=== PATIENT | female | born 1945 | race Caucasian/White ===

== ENCOUNTER 2019-11-27 22:00 | Emergency (ER) | payer MEDICARE ==
[2019-11-27 22:16] VITALS: RESP 20; TEMP 97.8
[2019-11-27] MEDS ORDERED: MORPHINE SULFATE 4 MG/ML SYRINGE IM STA (22:37)
--- NOTE | 2019-11-27 22:57 | ED ---
General Adult HPI - General Chief complaint: Fall Stated complaint: Fall Time Seen by Provider: 11/27/19 22:04 Source: patient, EMS, RN notes reviewed Mode of arrival: EMS Limitations: no limitations - History of Present Illness Initial comments: 74-year-old female with a past medical history of hyperlipidemia, hypertension, rheumatoid arthritis, thyroid disorder presents to the emergency department for chief complaint of fall. Patient states she was getting out of her shower when she stepped over the edge of the bathtub and onto a stair. States she missed the stair and fell onto her left side. Patient did not hit her head but does have some neck pain. Patient is complaining of left foot and hip pain. Denies any back chest or abdominal pain. Denies any lightheadedness chest pain or shortness of breath preceding this fall. Fall was purely mechanical. Patient denies being on blood thinners.Patient has no other complaints at this time i ncluding shortness of breath, chest pain, abdominal pain, nausea or vomiting, headache, or visual changes. - Related Data Allergies Allergy/AdvReac Type Severity Reaction Status Date / Time Penicillins Allergy Rash/Hives Verified 11/27/19 22:07 azithromycin AdvReac Abdominal Verified 11/27/19 22:07 Pain Review of Systems ROS Statement: Those systems with pertinent positive or pertinent negative responses have been documented in the HPI. ROS Other: All systems not noted in ROS Statement are negative. Past Medical History Past Medical History: Hyperlipidemia, Hypertension, Rheumatoid Arthritis (RA), Thyroid Disorder History of Any Multi-Drug Resistant Organisms: None Reported Past Surgical History: Breast Surgery, Orthopedic Surgery, Tonsillectomy Additional Past Surgical History / Comment(s): foot surgeries, tongue biopsy, breast biopsies Past Psychological History: Bipolar Smoking Status: Former smoker Past Alcohol Use History: Rare Past Drug Use History: None Reported General Exam Limitations: no limitations General appearance: alert, in no apparent distress Head exam: Present: atraumatic, normocephalic, normal inspection Eye exam: Present: normal appearance, PERRL, EOMI. Absent: scleral icterus, conjunctival injection, periorbital swelling ENT exam: Present: normal exam, normal oropharynx, mucous membranes moist, TM's normal bilaterally, normal external ear exam Neck exam: Present: tenderness (Mild tenderness of cervical spine.), other (c- collar in place). Absent: meningismus, lymphadenopathy Respiratory exam: Present: normal lung sounds bilaterally. Absent: respiratory distress, wheezes, rales, rhonchi, stridor Cardiovascular Exam: Present: regular rate, normal rhythm, normal heart sounds. Absent: systolic murmur, diastolic murmur, rubs, gallop, clicks GI/Abdominal exam: Present: soft, normal bowel sounds. Absent: distended, tenderness, guarding, rebound, rigid Extremities exam: Present: normal capillary refill (Capillary fill less than 2 seconds in the left lower extremity. DP pulses 2+.), other (Patient has generalized tenderness of the left foot tib-fib and proximal femur. Patient able to flex the left hip 30. Extension to neutral position.). Absent: calf tenderness Back exam: Absent: CVA tenderness (R), CVA tenderness (L) Neurological exam: Present: alert, oriented X3 Psychiatric exam: Present: normal affect, normal mood Course Vital Signs 11/27/19 11/27/19 22:08 23:09 Temperature 97.8 F Pulse Rate 89 80 Respiratory 20 20 Rate Blood Pressure 125/63 131/69 O2 Sat by Pulse 97 98 Oximetry Medical Decision Making - Medical Decision Making 74-year-old female presents for mechanical fall. Patient thinks complaint is left foot pain but if any pain throughout the entire left leg. Neurovascular status intact in the left lower extremity CT cervical spine shows multilevel spondylitic changes without fracture. There is cerebral atrophy and chronic small vessel ischemia. 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 There is no mass effect, midline shift or sign of intracranial hemorrhage. X-ray of the left hip and pelvis shows no fracture. X-ray of the left tib-fib shows no acute abnormality x-ray of the left foot shows advanced obstructive changes that could relate to long-standing rheumatoid arthritis. No fracture seen. Patient does have a history of arthritis and left foot. Upon reevaluation patient is able to flex hip fully as well as left knee. She is able to sit without any pain and strings her legs around the side of the bed without any pain. However she is unable to bear weight on the left foot. States all of the pain is in the left foot. Therefore patient was splinted in a posterior splint and will follow up with orthopedics. Patient's son is coming to pick them up and will help them get into the house. She does have a walker and cane at home. They will return if patient has any worsening symptoms.I discussed this case with attending Dr. Shelton who agrees with this assessment and treatment plan. Disposition Clinical Impression: Fall, Left foot pain Disposition: HOME SELF-CARE Condition: Good Instructions (If sedation given, give patient instructions): Arthralgia (ED) Additional Instructions: Please take Tylenol for pain. Keep splint dry. Follow-up with orthopedics in one to 2 days. Return if you have any worsening symptoms to the emergency department. Is patient prescribed a controlled substance at d/c from ED?: No Referrals: Vu Rhoades DO [Primary Care Provider] - 1-2 days Db Pritchard DO [Doctor of Osteopathic Medicine] - 1-2 days Time of Disposition: 23:51
--- NOTE | 2019-11-27 23:08 | CT ---
EXAMINATION TYPE: CT brain ana alexander con DATE OF EXAM: 11/27/2019 COMPARISON: None HISTORY: Fall. Headache. Neck pain. CT DLP: mGycm Automated exposure control for dose reduction was used. There is cerebral cortical atrophy. 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 There is old right posterior frontal lobe craniotomy defect. There is no mass eff ect nor midline shift. There is no sign of intracranial hemorrhage. Skull base is intact. Cervical vertebra have fairly normal alignment to there is moderate narrowing of disc spaces from C3 to C7 with spurring of the endplates. There is mild hypertrophic multilevel cervical facet arthropath y. Cervical basilar relationships is normal. The posterior elements are intact. IMPRESSION: Cervical multilevel spondylotic changes. No fracture. Cerebral atrophy and chronic small vessel ischemia. 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
--- NOTE | 2019-11-27 23:10 | XR ---
EXAMINATION TYPE: XR Hip LT and AP Pelvis DATE OF EXAM: 11/27/2019 COMPARISON: NONE HISTORY: Hip pain TECHNIQUE: 3 views FINDINGS: Pelvic ring is intact. There is sclerosis at the pubic symphysis. There is some spurring of the acetabula. Sacroiliac joints appear normal. There is no evidence of a fracture. There is 2 cm exostosis on the left iliac bone. IMPRESSION: No acute abnormality of the pelvis and left hip. No fracture.
[2019-11-27 23:11] VITALS: BP 131/69; PULSE 80
--- NOTE | 2019-11-27 23:11 | XR ---
EXAMINATION TYPE: XR foot complete LT DATE OF EXAM: 11/27/2019 COMPARISON: NONE HISTORY: Pain after falling TECHNIQUE: 3 views FINDINGS: There is extensive erosion at the MP joints with destructive changes. There is old fusion s urgery at the first MP joint. There is osteopenia. There is plantar calcaneal spurring. There is narr owing of the intertarsal joint spaces. IMPRESSION: Advanced destructive changes at the MP joints could relate to long-standing rheumatoid ar thritis or other inflammatory arthritis. No acute fracture seen.
--- NOTE | 2019-11-27 23:13 | XR ---
EXAMINATION TYPE: XR tibia fibula LT DATE OF EXAM: 11/27/2019 COMPARISON: NONE HISTORY: Leg pain TECHNIQUE: 4 views FINDINGS: I see no fracture nor dislocation. Knee joint and ankle joint appear intact. Tibia and fibu la appear intact. There is some spurring of the patella. IMPRESSION: No acute abnormality of the left tibia and fibula.
--- NOTE | 2019-11-27 23:29 | ED ---
General Adult HPI - General Chief complaint: Fall Stated complaint: Fall Time Seen by Provider: 11/27/19 22:04 Source: patient, EMS Mode of arrival: EMS Limitations: no limitations - Related Data Allergies Allergy/AdvReac Type Severity Reaction Status Date / Time Penicillins Allergy Rash/Hives Verified 11/27/19 22:07 azithromycin AdvReac Abdominal Verified 11/27/19 22:07 Pain Review of Systems ROS Statement: Those systems with pertinent positive or pertinent negative responses have been documented in the HPI. ROS Other: All systems not noted in ROS Statement are negative. Past Medical History Past Medical History: Hyperlipidemia, Hypertension, Rheumatoid Arthritis (RA), Thyroid Disorder History of Any Multi-Drug Resistant Organisms: None Reported Past Surgical History: Breast Surgery, Orthopedic Surgery, Tonsillectomy Additional Past Surgical History / Comment(s): foot surgeries, tongue biopsy, breast biopsies Past Psychological History: Bipolar Smoking Status: Former smoker Past Alcohol Use History: Rare Past Drug Use History: None Reported General Exam Limitations: no limitations Course Vital Signs 11/27/19 22:08 Temperature 97.8 F Pulse Rate 89 Respiratory 20 Rate Blood Pressure 125/63 O2 Sat by Pulse 97 Oximetry Disposition Referrals: Vu Rhoades DO [Primary Care Provider] - 1-2 days
== END 2019-11-28 00:30 | disposition home or self-care (01) ==
LOC: EC 22:00
DX: M79.672 Pain in left foot (principal); M47.812 Spondylosis without myelopathy or radiculopathy, cervical region; G31.9 Degenerative disease of nervous system, unspecified; I67.82 Cerebral ischemia; R93.7 Abnormal findings on diagnostic imaging of other parts of musculoskeletal system; M19.072 Primary osteoarthritis, left ankle and foot; M54.2 Cervicalgia; M25.552 Pain in left hip; M06.9 Rheumatoid arthritis, unspecified; Z87.891 Personal history of nicotine dependence; Z88.0 Allergy status to penicillin; Z88.1 Allergy status to other antibiotic agents; Z86.69 Personal history of other diseases of the nervous system and sense organs; Z98.890 Other specified postprocedural states; W01.0XXA Fall on same level from slipping, tripping and stumbling without subsequent striking against object, initial encounter; Y93.89 Activity, other specified; Y92.009 Unspecified place in unspecified non-institutional (private) residence as the place of occurrence of the external cause
CPT/HCPCS: 93005; 73502; 73590; 73630; 72125; 70450; 99284; 29515; 96372; J2270

== ENCOUNTER 2021-01-31 17:07 | Observation (INO) | payer MEDICARE ==
[2021-01-31] MEDS ORDERED: SODIUM CHLORIDE 0.9% 500 ML 500 ML IV STA (17:19)
[2021-01-31 17:42] LABS: Basophils % (A) 0 %; Eosinophils % (A) 0 %; HCT 37.7 % (34.0-46.0); HGB 12.4 gm/dL (11.4-16.0); Lymphocytes # (A) 0.5 k/uL (1.0-4.8); Lymphocytes % (A) 6 %; MCH 33.7 pg (25.0-35.0); MCHC 32.8 g/dL (31.0-37.0); Macrocytosis Slight; Mean Platelet Volume 7.9; Monocytes # (A) 0.4 k/uL (0-1.0); Monocytes % (A) 5 %; Neutrophils # (A) 7.2 k/uL (1.3-7.7); Neutrophils % (A) 88 %; Platelet Count 152 k/uL (150-450); RBC 3.66 m/uL (3.80-5.40); RDW 15.7 % (11.5-15.5); WBC 8.2 k/uL (3.8-10.6)
[2021-01-31 17:51] LABS: Partial Thromboplastin Time 24.6 sec (22.0-30.0); Prothrombin Time 10.3 sec (9.0-12.0)
[2021-01-31 17:56] LABS: Albumin 3.6 g/dL (3.5-5.0); Calcium 9.5 mg/dL (8.4-10.2); Magnesium 1.8 mg/dL (1.6-2.3); Potassium 4.2 mmol/L (3.5-5.1); Total Bilirubin 0.5 mg/dL (0.2-1.3)
[2021-01-31 18:04] LABS: Appearance,Urine Clear (Clear); Bilirubin,Urine Negative (Negative); Blood,Urine Negative (Negative); Color,Urine Yellow; Glucose,Urine (UA) Negative (Negative); Ketones,Urine Negative (Negative); Leukocyte Esterase,Urine Large (Negative); Mucus,Urine Rare /hpf; Nitrite,Urine Negative (Negative); PH, Urine 7.5 (5.0-8.0); Protein,Urine Trace (Negative); RBC,Urine 1 /hpf (0-5); Specific Gravity,Urine 1.008 (1.001-1.035); Squamous Epithelial Cell,Urine 1 /hpf (0-4); Urobilinogen,Urine <2.0 mg/dL (<2.0); WBC,Urine 27 /hpf (0-5)
--- NOTE | 2021-01-31 18:11 | XR ---
EXAMINATION TYPE: XR chest 2V DATE OF EXAM: 01/31/2021 COMPARISON: NONE HISTORY: Weakness. TECHNIQUE: Frontal and lateral views of the chest are obtained. FINDINGS: There is mild prominence of interstitial and vascular markings. No significant infiltrate, pleural effusion, or pneumothorax seen. Mild cardiomegaly. The osseous structures are intact. IMPRESSION: Mild interstitial edema versus atelectasis.
[2021-01-31] MEDS ORDERED: ACETAMINOPHEN TAB 500 MG TAB PO STA (18:12)
--- NOTE | 2021-01-31 18:25 | ED ---
Weakness HPI - General Chief complaint: Weakness Stated complaint: Weakness Time Seen by Provider: 01/31/21 17:12 Source: patient, EMS Mode of arrival: EMS Limitations: no limitations - History of Present Illness Initial comments: Patient is a 75-year-old female, with history of rheumatoid arthritis, hypertension, presenting to the emergency department via EMS from home for generalized weakness. Patient states she's been feeling weaker over the last day. She states she can normally walk with a walker but had a hard time getting around today. She denies any falls or trauma. She denies having any pain anywhere. She states her doctor started her on steroids over the last few days due to increased weakness of her lower legs. She denies any fevers or chills, no chest pain or shortness of breath, no abdominal pain, no nausea or vomiting. She denies any dysuria. She denies any sick contacts. She has no further complaints at this time. Upon arrival to the ER, she is slightly febrile 100.7, rest of vitals normal. - Related Data Home Medications Medication Instructions Recorded Confirmed Acetaminophen Tab [Tylenol Tab] 500 mg PO BID 01/31/21 01/31/21 Calcium Carb-Vit D 500Mg-5Mcg 1 tab PO BID 01/31/21 01/31/21 [Oscal 500+D 5 Mcg (200 Iu)] Cholecalciferol [Vitamin D3 (25 25 mcg PO DAILY 01/31/21 01/31/21 Mcg = 1000 Iu)] Divalproex [Depakote] 250 mg PO HS 01/31/21 01/31/21 Folic Acid 6 mg PO DAILY@1200 01/31/21 01/31/21 Levothyroxine Sodium [Synthroid] 75 mcg PO [id number] 01/31/21 01/31/21 Losartan Potassium [Cozaar] 25 mg PO DAILY 01/31/21 01/31/21 Multivitamins, Thera [Multivitamin 1 tab PO DAILY 01/31/21 01/31/21 (formulary)] Omeprazole 20 mg PO BID 01/31/21 01/31/21 Polyethylene Glycol 3350 [Miralax] 17 gm PO DAILY 01/31/21 01/31/21 Pravastatin Sodium [Pravachol] 40 mg PO HS 01/31/21 01/31/21 Propylene Glycol [Systane Complete] 1 drop BOTH EYES BID 01/31/21 01/31/21 metHOTREXate sodium [Methotrexate] 10 mg PO WE@2100 01/31/21 01/31/21 metHOTREXate sodium [Methotrexate] 12.5 mg PO WE@0800 01/31/21 01/31/21 predniSONE [Deltasone] 20 mg PO DAILY 01/31/21 01/31/21 traMADol HCl [Ultram] 50 mg PO HS 01/31/21 01/31/21 Allergies Allergy/AdvReac Type Severity Reaction Status Date / Time Penicillins Allergy Rash/Hives Verified 01/31/21 18:10 azithromycin AdvReac Abdominal Verified 01/31/21 18:10 Pain Review of Systems ROS Statement: Those systems with pertinent positive or pertinent negative responses have been documented in the HPI. ROS Other: All systems not noted in ROS Statement are negative. Past Medical History Past Medical History: Hyperlipidemia, Hypertension, Rheumatoid Arthritis (RA), Thyroid Disorder History of Any Multi-Drug Resistant Organisms: None Reported Past Surgical History: Breast Surgery, Orthopedic Surgery, Tonsillectomy Additional Past Surgical History / Comment(s): foot surgeries, tongue biopsy, breast biopsies Past Psychological History: Bipolar Past Alcohol Use History: Rare Past Drug Use History: None Reported General Exam - General Exam Comments Initial Comments: GENERAL: Patient is well-developed and well-nourished. Patient is nontoxic and in no acute distress. HEAD: Atraumatic, normocephalic. EYES: Pupils equal round and reactive to light, extraocular movements intact, sclera anicteric, conjunctiva are normal. Eyelids were unremarkable. ENT: TMs normal, nares patent, oropharynx clear without exudates. Moist mucous membranes. NECK: Normal range of motion, supple without lymphadenopathy or JVD. LUNGS: Unlabored respirations. Breath sounds clear to auscultation bilaterally and equal. No wheezes rales or rhonchi. HEART: Regular rate and rhythm without murmurs, rubs or gallops. ABDOMEN: Soft, nontender, normoactive bowel sounds. No guarding, no rebound. No masses appreciated. : Deferred MUSCULOSKELETAL: Normal extremities with adequate strength and normal range of motion, no pitting or edema. No clubbing or cyanosis. NEUROLOGICAL: Patient is alert and oriented x 3. Motor and sensory are also intact. Cranial nerves II through XII grossly intact. Symmetrical smile. Normal speech, normal gait. PSYCH: Normal mood, normal affect. SKIN: Warm, Dry, normal turgor, no rashes or lesions noted. Limitations: no limitations Course Vital Signs 01/31/21 01/31/21 01/31/21 17:08 18:38 19:10 Temperature 100.7 F H Pulse Rate 104 H 89 98 Respiratory 18 18 18 Rate Blood Pressure 145/72 116/75 118/67 O2 Sat by Pulse 98 97 97 Oximetry 01/31/21 20:11 Temperature 98.8 F Pulse Rate 84 Respiratory 18 Rate Blood Pressure 109/70 O2 Sat by Pulse 97 Oximetry EKG Findings - EKG Comments: EKG Findings:: Normal sinus rhythm, left anterior fascicular block, left ventricular hypertrophy, ST and T-wave abnormalities, no signs of acute ischemia. Prolonged QT. Ventricular rate 95, PA interval 134, QT 388. Medical Decision Making - Medical Decision Making Patient is a 75-year-old female with history of rheumatoid arthritis, presenting for increased weakness over the past 1-2 days. She can normally ambulate with a walker but has been unable to all day today. She did arrive febrile 100.7, tachycardia at 104, she is on immunosuppressants. Patient's white count is normal, electrolytes are within normal limits, lactic acid is 2.3, urine has 27 wbc's, large amount of leukocyte Estrace, urine cultures pending. Cold that is not detected. Chest x-ray shows mild interstitial edema versus atelectasis. Patient received fluids, Tylenol. Patient had a hard time even standing to use the bedside commode, required lots of assistance. Patient will be admitted for service criteria, weakness, inability to ambulate. Patient accepted [facility]. Case discussed with Dr. steward. - Lab Data Result diagrams: 01/31/21 17:28 01/31/21 17:28 Lab Results 01/31/21 01/31/21 01/31/21 Range/Units 17:24 17:24 17:28 WBC 8.2 (3.8-10.6) k/uL RBC 3.66 L (3.80-5.40) m/uL Hgb 12.4 (11.4-16.0) gm/dL Hct 37.7 (34.0-46.0) % MCV 103.0 H (80.0-100.0) fL MCH 33.7 (25.0-35.0) pg MCHC 32.8 (31.0-37.0) g/dL RDW 15.7 H (11.5-15.5) % Plt Count 152 (150-450) k/uL MPV 7.9 Neutrophils % 88 % Lymphocytes % 6 % Monocytes % 5 % Eosinophils % 0 % Basophils % 0 % Neutrophils # 7.2 (1.3-7.7) k/uL Lymphocytes # 0.5 L (1.0-4.8) k/uL Monocytes # 0.4 (0-1.0) k/uL Eosinophils # 0.0 (0-0.7) k/uL Basophils # 0.0 (0-0.2) k/uL Macrocytosis Slight PT (9.0-12.0) sec INR (<1.2) APTT (22.0-30.0) sec Sodium (137-145) mmol/L Potassium (3.5-5.1) mmol/L Chloride (98-107) mmol/L Carbon Dioxide (22-30) mmol/L Anion Gap mmol/L BUN (7-17) mg/dL Creatinine (0.52-1.04) mg/dL Est GFR (CKD-EPI)AfAm (>60 ml/min/1.73 sqM) Est GFR (CKD-EPI)NonAf (>60 ml/min/1.73 sqM) Glucose (74-99) mg/dL Lactic Ac Sepsis Rflx Plasma Lactic Acid Jackson (0.7-2.0) mmol/L Calcium (8.4-10.2) mg/dL Magnesium (1.6-2.3) mg/dL Total Bilirubin (0.2-1.3) mg/dL AST (14-36) U/L ALT (4-34) U/L Alkaline Phosphatase (38-126) U/L Troponin I (0.000-0.034) ng/mL Total Protein (6.3-8.2) g/dL Albumin (3.5-5.0) g/dL Urine Color Yellow Urine Appearance Clear (Clear) Urine pH 7.5 (5.0-8.0) Ur Specific [place] 1.008 (1.001-1.035) Urine Protein Trace H (Negative) Urine Glucose (UA) Negative (Negative) Urine Ketones Negative (Negative) Urine Blood Negative (Negative) Urine Nitrite Negative (Negative) Urine Bilirubin Negative (Negative) Urine Urobilinogen <2.0 (<2.0) mg/dL Ur Leukocyte Esterase Large H (Negative) Urine RBC 1 (0-5) /hpf Urine WBC 27 H (0-5) /hpf Ur Squamous Epith Cells 1 (0-4) /hpf Urine Mucus Rare H (None) /hpf Coronavirus (PCR) Not Detected (Not Detectd) 01/31/21 01/31/21 01/31/21 Range/Units 17:28 17:28 17:28 WBC (3.8-10.6) k/uL RBC (3.80-5.40) m/uL Hgb (11.4-16.0) gm/dL Hct (34.0-46.0) % MCV (80.0-100.0) fL MCH (25.0-35.0) pg MCHC (31.0-37.0) g/dL RDW (11.5-15.5) % Plt Count (150-450) k/uL MPV Neutrophils % % Lymphocytes % % Monocytes % % Eosinophils % % Basophils % % Neutrophils # (1.3-7.7) k/uL Lymphocytes # (1.0-4.8) k/uL Monocytes # (0-1.0) k/uL Eosinophils # (0-0.7) k/uL Basophils # (0-0.2) k/uL Macrocytosis PT 10.3 (9.0-12.0) sec INR 1.0 (<1.2) APTT 24.6 (22.0-30.0) sec Sodium 137 (137-145) mmol/L Potassium 4.2 (3.5-5.1) mmol/L Chloride 100 (98-107) mmol/L Carbon Dioxide 28 (22-30) mmol/L Anion Gap 9 mmol/L BUN 16 (7-17) mg/dL Creatinine 1.33 H (0.52-1.04) mg/dL Est GFR (CKD-EPI)AfAm 45 (>60 ml/min/1.73 sqM) Est GFR (CKD-EPI)NonAf 39 (>60 ml/min/1.73 sqM) Glucose 176 H (74-99) mg/dL Lactic Ac Sepsis Rflx Plasma Lactic Acid Jackson 2.3 H* (0.7-2.0) mmol/L Calcium 9.5 (8.4-10.2) mg/dL Magnesium 1.8 (1.6-2.3) mg/dL Total Bilirubin 0.5 (0.2-1.3) mg/dL AST 28 (14-36) U/L ALT 17 (4-34) U/L Alkaline Phosphatase 80 (38-126) U/L Troponin I (0.000-0.034) ng/mL Total Protein 6.0 L (6.3-8.2) g/dL Albumin 3.6 (3.5-5.0) g/dL Urine Color Urine Appearance (Clear) Urine pH (5.0-8.0) Ur Specific [place] (1.001-1.035) Urine Protein (Negative) Urine Glucose (UA) (Negative) Urine Ketones (Negative) Urine Blood (Negative) Urine Nitrite (Negative) Urine Bilirubin (Negative) Urine Urobilinogen (<2.0) mg/dL Ur Leukocyte Esterase (Negative) Urine RBC (0-5) /hpf Urine WBC (0-5) /hpf Ur Squamous Epith Cells (0-4) /hpf Urine Mucus (None) /hpf Coronavirus (PCR) (Not Detectd) 01/31/21 01/31/21 Range/Units 17:28 17:59 WBC (3.8-10.6) k/uL RBC (3.80-5.40) m/uL Hgb (11.4-16.0) gm/dL Hct (34.0-46.0) % MCV (80.0-100.0) fL MCH (25.0-35.0) pg MCHC (31.0-37.0) g/dL RDW (11.5-15.5) % Plt Count (150-450) k/uL MPV Neutrophils % % Lymphocytes % % Monocytes % % Eosinophils % % Basophils % % Neutrophils # (1.3-7.7) k/uL Lymphocytes # (1.0-4.8) k/uL Monocytes # (0-1.0) k/uL Eosinophils # (0-0.7) k/uL Basophils # (0-0.2) k/uL Macrocytosis PT (9.0-12.0) sec INR (<1.2) APTT (22.0-30.0) sec Sodium (137-145) mmol/L Potassium (3.5-5.1) mmol/L Chloride (98-107) mmol/L Carbon Dioxide (22-30) mmol/L Anion Gap mmol/L BUN (7-17) mg/dL Creatinine (0.52-1.04) mg/dL Est GFR (CKD-EPI)AfAm (>60 ml/min/1.73 sqM) Est GFR (CKD-EPI)NonAf (>60 ml/min/1.73 sqM) Glucose (74-99) mg/dL Lactic Ac Sepsis Rflx Y Plasma Lactic Acid Jackson (0.7-2.0) mmol/L Calcium (8.4-10.2) mg/dL Magnesium (1.6-2.3) mg/dL Total Bilirubin (0.2-1.3) mg/dL AST (14-36) U/L ALT (4-34) U/L Alkaline Phosphatase (38-126) U/L Troponin I 0.016 (0.000-0.034) ng/mL Total Protein (6.3-8.2) g/dL Albumin (3.5-5.0) g/dL Urine Color Urine Appearance (Clear) Urine pH (5.0-8.0) Ur Specific [place] (1.001-1.035) Urine Protein (Negative) Urine Glucose (UA) (Negative) Urine Ketones (Negative) Urine Blood (Negative) Urine Nitrite (Negative) Urine Bilirubin (Negative) Urine Urobilinogen (<2.0) mg/dL Ur Leukocyte Esterase (Negative) Urine RBC (0-5) /hpf Urine WBC (0-5) /hpf Ur Squamous Epith Cells (0-4) /hpf Urine Mucus (None) /hpf Coronavirus (PCR) (Not Detectd) Disposition Clinical Impression: Weakness, Unable to ambulate, SIRS (systemic inflammatory response syndrome) Disposition: ADMITTED IP TO THIS [facility] Condition: Stable Referrals: Vu Rhoades DO [Primary Care Provider] - 1-2 days Decision Date: 01/31/21 Decision Time: 20:33
[2021-01-31] MEDS ORDERED: ONDANSETRON 4 MG/2 ML VIAL IVP PRN (20:31)
[2021-01-31] MEDS ORDERED: NALOXONE 0.4 MG/ML 1 ML VIAL IV PRN (20:31)
[2021-01-31] MEDS ORDERED: ACETAMINOPHEN TAB 325 MG TAB PO PRN (20:31)
[2021-01-31] MEDS ORDERED: CEPHALEXIN 500 MG CAP PO STA (20:33)
[2021-01-31] MEDS: SODIUM CHLORIDE 0.9% 1,000 ML IV SCH (20:53)
--- NOTE | 2021-01-31 21:40 | CT ---
EXAM: CT brain wo con CLINICAL HISTORY: Weakness. COMPARISON: 11/27/2019. TECHNIQUE: Contiguous axial noncontrast images of the brain were obtained. Coronal and sagittal refor mats were generated and reviewed. Automated dose control was used for this exam. FINDINGS: There is no evidence for intracranial hemorrhage, mass effect or midline shift. There is moderate par enchymal volume loss and white matter disease. There is right frontal encephalomalacia. Ventricular size and configuration is within normal limits for degree of parenchymal volume. The paranasal sinuses are clear. The mastoid air cells are clear. No acute osseous abnormality. Right frontal craniotomy seen. IMPRESSION: No acute intracranial abnormality. Right frontal lobe encephalomalacia.
[2021-02-01] MEDS ORDERED: LOSARTAN 25 MG TAB PO SCH (09:30)
[2021-02-01] MEDS: FOLIC ACID 1 MG TAB PO SCH (11:41)
[2021-02-01] MEDS: ARTIFICIAL TEARS-HYPROMELLOSE DROPS 15 ML BTL BOTH EYES SCH ×2 (11:41→20:46)
[2021-02-01] MEDS: LEVOTHYROXINE 75 MCG TAB PO SCH (11:41)
[2021-02-01] MEDS: polyethylene glycoL 3350 17 GM POWD.PACK PO SCH (11:41)
[2021-02-01] MEDS: CHOLECALCIFEROL 25 MCG (1000 IU) TABLET PO SCH (11:41)
[2021-02-01] MEDS: MULTIVITAMINS, THERA 1 EACH TAB PO SCH (11:41)
[2021-02-01] MEDS: PANTOPRAZOLE 40 MG TABLET PO SCH ×2 (11:41→17:05)
--- NOTE | 2021-02-01 11:43 | P.HPIM ---
History of Present Illness Patient is a pleasant 75-year-old female with history of rheumatoid arthritis with extensive rheumatoid deformities came in for generalized weakness with this weakness has been slowly progressive over years and now up to the point she cannot take care of herself and family cannot take care of several herself because of which patient was brought to ER. Patient is not confused at that time patient may have some mild dementia. Patient was comparing of severe neuropathic pain in both lower extremity is particularly from ankle down. Patient forgot to take her prednisone for last 3 days because of which she believes she may have rheumatoid flareup. Patient denied any fever chills although patient had a low-grade fever of 100.7. Urine is mildly abnormal not quite a bit impressive but considering his her fevers and source not clear how start her on Rocephin and continue for 3 days Review of Systems REVIEW OF SYSTEMS: CONSTITUTIONAL: No fever, no malaise, no fatigue. HEENT: No recent visual problems or hearing problems. Denied any sore throat. CARDIOVASCULAR: No chest pain, orthopnea, PND, no palpitations, no syncope. PULMONARY: No shortness of breath, no cough, no hemoptysis. GASTROINTESTINAL: No diarrhea, no nausea, no vomiting, no abdominal pain. NEUROLOGICAL: No headaches, no weakness, no numbness. HEMATOLOGICAL: Denies any bleeding or petechiae. GENITOURINARY: Denies any burning micturition, frequency, or urgency. MUSCULOSKELETAL/RHEUMATOLOGICAL: As mentioned in HPI ENDOCRINE: Denies any polyuria or polydipsia. The rest of the 14-point review of systems is negative. Past Medical History Past Medical History: Hyperlipidemia, Hypertension, Rheumatoid Arthritis (RA), Thyroid Disorder Additional Past Medical History / Comment(s): RA/chronic pain, hypothyroid, UTI, occasional urine incontinence, constipation. History of Any Multi-Drug Resistant Organisms: None Reported Past Surgical History: Breast Surgery, Hysterectomy, Orthopedic Surgery, Ton sillectomy Additional Past Surgical History / Comment(s): Bilateral feet/ankles Alegria Hiren procedures/hardware in place, D&Cs, partial thyroidectomy d/t nodules, tongue lesion/benign biopsy, colonoscopy. Past Anesthesia/Blood Transfusion Reactions: No Reported Reaction Smoking Status: Former smoker - Past Family History Father Family Medical History: Coronary Artery Disease (CAD), Myocardial Infarction ([place]) Additional Family Medical History / Comment(s): Father of a [place] at the age of 83yrs. Mother Family Medical History: Rheumatoid Arthritis (RA) Additional Family Medical History / Comment(s): Mother lived to be 83 yrs old. Medications and Allergies Home Medications Medication Instructions Recorded Confirmed Type Acetaminophen Tab [Tylenol Tab] 500 mg PO BID 01/31/21 01/31/21 History Calcium Carb-Vit D 500Mg-5Mcg 1 tab PO BID 01/31/21 01/31/21 History [Oscal 500+D 5 Mcg (200 Iu)] Cholecalciferol [Vitamin D3 (25 25 mcg PO DAILY 01/31/21 01/31/21 History Mcg = 1000 Iu)] Divalproex [Depakote] 250 mg PO HS 01/31/21 01/31/21 History Folic Acid 6 mg PO DAILY@1200 01/31/21 01/31/21 History Levothyroxine Sodium [Synthroid] 75 mcg PO MOTUWETHFRSA 01/31/21 01/31/21 History Losartan Potassium [Cozaar] 25 mg PO DAILY 01/31/21 01/31/21 History Multivitamins, Thera [Multivitamin 1 tab PO DAILY 01/31/21 01/31/21 History (formulary)] Omeprazole 20 mg PO BID 01/31/21 01/31/21 History Polyethylene Glycol 3350 [Miralax] 17 gm PO DAILY 01/31/21 01/31/21 History Pravastatin Sodium [Pravachol] 40 mg PO HS 01/31/21 01/31/21 History Propylene Glycol [Systane Complete] 1 drop BOTH EYES BID 01/31/21 01/31/21 History metHOTREXate sodium [Methotrexate] 10 mg PO WE@2100 01/31/21 01/31/21 History metHOTREXate sodium [Methotrexate] 12.5 mg PO WE@0800 01/31/21 01/31/21 History predniSONE [Deltasone] 20 mg PO DAILY 01/31/21 01/31/21 History traMADol HCl [Ultram] 50 mg PO HS 01/31/21 01/31/21 History Allergies Allergy/AdvReac Type Severity Reaction Status Date / Time Penicillins Allergy Rash/Hives Verified 01/31/21 18:10 azithromycin AdvReac Abdominal Verified 01/31/21 18:10 Pain Physical Exam Vitals: Vital Signs Temp Pulse Pulse Resp BP BP Pulse Ox 02/01/21 02:00 97.8 F 57 L 18 113/75 98 01/31/21 22:25 98.2 F 67 18 133/95 97 01/31/21 21:55 98.8 F 72 18 104/61 96 01/31/21 20:11 98.8 F 84 18 109/70 97 01/31/21 19:10 98 18 118/67 97 01/31/21 18:38 89 18 116/75 97 01/31/21 17:08 100.7 F H 104 H 18 145/72 98 Intake and Output 01/31/21 02/01/21 02/01/21 22:59 06:59 14:59 Other: Voiding Method Diaper # Voids 2 3 Weight 70.307 kg 70.307 kg PHYSICAL EXAMINATION: GENERAL: The patient is alert and oriented x3, not in any acute distress. Well developed, well nourished. HEENT: Pupils are round and equally reacting to light. EOMI. No scleral icterus. No conjunctival pallor. Normocephalic, atraumatic. No pharyngeal erythema. No thyromegaly. CARDIOVASCULAR: S1 and S2 present. No murmurs, rubs, or gallops. PULMONARY: Chest is clear to auscultation, no wheezing or crackles. ABDOMEN: Soft, nontender, nondistended, normoactive bowel sounds. No palpable organomegaly. MUSCULOSKELETAL: Extensive deformities in the smaller joints in both upper and lower extremities patient has significant deformities in both feet. Tenderness to patch both lower extremities EXTREMITIES: No cyanosis, clubbing, or pedal edema. NEUROLOGICAL: Gross neurological examination did not reveal any focal deficits. She does have significant generalized weakness SKIN: No rashes. Results CBC & Chem 7: 01/31/21 17:28 01/31/21 17:28 Labs: Abnormal Lab Results - Last 24 Hours (Table) 01/31/21 01/31/21 01/31/21 Range/Units 17:24 17:28 17:28 RBC 3.66 L (3.80-5.40) m/uL MCV 103.0 H (80.0-100.0) fL RDW 15.7 H (11.5-15.5) % Lymphocytes # 0.5 L (1.0-4.8) k/uL Creatinine 1.33 H (0.52-1.04) mg/dL Glucose 176 H (74-99) mg/dL Plasma Lactic Acid Jackson (0.7-2.0) mmol/L Total Protein 6.0 L (6.3-8.2) g/dL Urine Protein Trace H (Negative) Ur Leukocyte Esterase Large H (Negative) Urine WBC 27 H (0-5) /hpf Urine Mucus Rare H (None) /hpf 01/31/21 Range/Units 17:28 RBC (3.80-5.40) m/uL MCV (80.0-100.0) fL RDW (11.5-15.5) % Lymphocytes # (1.0-4.8) k/uL Creatinine (0.52-1.04) mg/dL Glucose (74-99) mg/dL Plasma Lactic Acid Jackson 2.3 H* (0.7-2.0) mmol/L Total Protein (6.3-8.2) g/dL Urine Protein (Negative) Ur Leukocyte Esterase (Negative) Urine WBC (0-5) /hpf Urine Mucus (None) /hpf Microbiology - Last 24 Hours (Table) 01/31/21 17:24 Urine Culture - Preliminary Urine,Voided Thrombosis Risk Factor Assmnt - Choose All That Apply Any of the Below Risk Factors Present?: Yes Each Factor Represents 1 point: Medical pt on bed rest, Obesity (BMI >25) Other Risk Factors: Yes Each Risk Factor Represents 3 Points: Age 75 years or older Other congenital or acquired thrombophilia - If yes, enter type in comment: No Thrombosis Risk Factor Assessment Total Risk Factor Score: 5 Thrombosis Risk Factor Assessment Level: High Risk Assessment and Plan Plan: -Generalized weakness severe: Patient appears to have significant deconditioning with contribution from severe rheumatoid arthritis. Patient will be resumed back on her prednisone. Physical therapy and occupational therapy evaluated the patient patient will need disposition to subacute rehabitation. -Severe peripheral neuropathy patient will be started on Lyrica twice a day. If in renal failure unsure of this acute renal failure on chronic kidney disease appears to be chronic kidney disease from BUN/creatinine ratio patient may have chronic kidney disease stage II to 3 from hypertensive nephrosclerosis -hypertension patient is presently hypotensive hold off on losartan -Hypothyroidism -Gastroesophageal reflux disease next and have an hyperlipidemia -Possible early stages of dementia etiology is not clear will order mini cognitive testing by speech therapy -DVT prophylaxis with Lovenox
[2021-02-01] MEDS: PREGABALIN 100 MG CAP PO SCH ×2 (11:44→20:42)
[2021-02-01] MEDS: predniSONE 20 MG TAB PO SCH (11:44)
[2021-02-01] MEDS: SODIUM CHLORIDE 0.9% 1,000 ML IV SCH (11:54)
--- NOTE | 2021-02-01 13:52 | XR ---
EXAMINATION TYPE: XR ankle complete bilateral DATE OF EXAM: 02/01/2021 CLINICAL HISTORY: Bilateral pain. TECHNIQUE: Frontal, lateral and oblique images of the bilateral ankles are obtained. COMPARISON: None. FINDINGS: There is no acute fracture/dislocation evident in either ankle. Demineralization is presen t bilaterally which is noted to lower radiographic sensitivity. Postsurgical change to the right ankle at level of medial and lateral malleolus. Asymmetric narrowing of the medial aspect ankle mortise. There is talocalcaneal joint space narrowing. Mild soft tissue s welling over the lateral malleolus. Moderate soft tissue swelling over the lateral malleolus left ankle. [id number] narrowing in the mid foot articulations particularly narrowing at the Lisfranc chay nts, findings worse at the first metatarsophalangeal joint bilaterally left greater than right. IMPRESSION: As above.
[2021-02-01 20:17] VITALS: RESP 14
[2021-02-01] MEDS: ACETAMINOPHEN TAB 500 MG TAB PO SCH (20:40)
[2021-02-01] MEDS: CALCIUM CARB-VIT D 500 MG-5 MCG TAB PO SCH (20:42)
[2021-02-01] MEDS ORDERED: DIVALPROEX 250 MG TABLET.DR PO SCH (21:00)
[2021-02-01] MEDS ORDERED: traMADol 50 MG TAB PO SCH (21:00)
[2021-02-01] MEDS ORDERED: PRAVASTATIN SODIUM 40 MG TAB PO SCH (21:00)
[2021-02-01] MEDS: BENZOCAINE 20 % GEL 15 GM TUBE MM PRN (21:29)
[2021-02-02] MEDS: BENZOCAINE 20 % GEL 15 GM TUBE MM PRN (03:45)
[2021-02-02 05:00] VITALS: BP 123/73; PULSE 63; TEMP 97.6
[2021-02-02] MEDS: SODIUM CHLORIDE 0.9% 1,000 ML IV SCH (07:03)
[2021-02-02] MEDS: PANTOPRAZOLE 40 MG TABLET PO SCH (07:32)
[2021-02-02] MEDS: predniSONE 20 MG TAB PO SCH (07:32)
[2021-02-02] MEDS: MULTIVITAMINS, THERA 1 EACH TAB PO SCH (07:32)
[2021-02-02] MEDS: FOLIC ACID 1 MG TAB PO SCH (07:33)
[2021-02-02] MEDS: ACETAMINOPHEN TAB 500 MG TAB PO SCH (07:33)
[2021-02-02] MEDS: PREGABALIN 100 MG CAP PO SCH (07:33)
[2021-02-02] MEDS: CHOLECALCIFEROL 25 MCG (1000 IU) TABLET PO SCH (07:33)
[2021-02-02] MEDS: polyethylene glycoL 3350 17 GM POWD.PACK PO SCH (07:33)
[2021-02-02] MEDS: LEVOTHYROXINE 75 MCG TAB PO SCH (07:33)
[2021-02-02] MEDS: ARTIFICIAL TEARS-HYPROMELLOSE DROPS 15 ML BTL BOTH EYES SCH (07:34)
[2021-02-02] MEDS: CALCIUM CARB-VIT D 500 MG-5 MCG TAB PO SCH (07:36)
[2021-02-02] MEDS ORDERED: ENOXAPARIN 40 MG/0.4 ML SYRINGE SQ SCH (09:00)
[2021-02-02 10:28] LABS: African American GFR (CKD) 51.2 (60.0-200.0); Anion Gap 5.6 mmol/L (4.00-12.00); BUN/Creat Ratio 17.5 Ratio (12.00-20.00); Calcium 8.8 mg/dL (8.7-10.3); Carbon Dioxide 27.4 mmol/L (21.6-31.8); Non-African American GFR(CKD) 44.2 (60.0-200.0); Potassium 4.6 mmol/L (3.5-5.5)
--- NOTE | 2021-02-02 12:14 | P.DS ---
Providers Date of admission: 01/31/21 20:18 Expected date of discharge: 02/02/21 Attending physician: Vitaly Cespedes Primary care physician: Vu Rhoades [facility] Course: Final diagnosis -Generalized weakness severe: Patient appears to have significant deconditioning with contribution from severe rheumatoid arthritis. -Severe peripheral neuropathy -Possible acute renal failure unsure of this acute renal failure on chronic kidney disease appears to be chronic kidney disease from BUN/creatinine ratio patient may have chronic kidney disease stage II to 3 from hypertensive nephrosclerosis -hypertension -Hypothyroidism -Gastroesophageal reflux disease -hyperlipidemia -Possible early stages of dementia etiology is not clear -DVT prophylaxis Discharge disposition Patient is being discharged in a stable condition with guarded prognosis to [facility] for continued PT/OT therapy. Patient will follow-up with Dr. Vu Rhoades in the outpatient setting upon discharge. Patient will continue with oral Ceftin 500 mg twice daily for the next 3 days and then may discontinue. Total time taken is greater than 35 minutes. Hospital course Patient is a pleasant 75-year-old female with history of rheumatoid arthritis with extensive rheumatoid deformities came in for generalized weakness with this weakness has been slowly progressive over years and now up to the point she cannot take care of herself and family cannot take care of several herself because of which patient was brought to ER. Patient is not confused at that time patient may have some mild dementia. Patient was comparing of severe neuropathic pain in both lower extremity is particularly from ankle down. Patient forgot to take her prednisone for last 3 days because of which she believes she may have rheumatoid flareup. Patient denied any fever chills although patient had a low-grade fever of 100.7. Urine is mildly abnormal not quite a bit impressive but considering his her fevers and source not clear how start her on Rocephin and continue for 3 days 02/02/2021 She was seen in follow-up this morning no acute overnight issues. Patient was seen and evaluated by physical therapy recommending subacute rehab. Recently patient was now agreeable to rehab although is now agreeable and would like some more close to home and will be going to [facility]. Patient was receiving IV antibiotics in the form of ceftriaxone for possible urinary tract infection and urine cultures finalized showing apparent skin and or genital gabbie with no bacterial growth. Patient will continue on a short course of Ceftin for 3 days on discharge complete the course and then may discontinue. Currently no reports of chest pain, shortness of breath, or palpitations. Patient is afebrile. No reports of nausea or vomiting and patient is tolerating diet. Patient will be going to [facility] today. On exam vital signs are stable. Cardio S1, S2 are muffled. Respiratory system shows diminished breath sounds at the bases with no wheezing or rhonchi noted. Abdomen is soft and nontender. Nervous system shows diffuse weakness. Please refer to medication reconciliation sheet for a list of medications. Patient Condition at Discharge: Stable Plan - Discharge Summary Discharge Rx Participant: No New Discharge Prescriptions: New Pregabalin [Lyrica] 100 mg PO BID #10 cap Continue Multivitamins, Thera [Multivitamin (formulary)] 1 tab PO DAILY Calcium Carb-Vit D 500Mg-5Mcg [Oscal 500+D 5 Mcg (200 Iu)] 1 tab PO BID Propylene Glycol [Systane Complete] 1 drop BOTH EYES BID metHOTREXate sodium [Methotrexate] 10 mg PO WE@2100 metHOTREXate sodium [Methotrexate] 12.5 mg PO WE@0800 predniSONE [Deltasone] 20 mg PO DAILY Folic Acid 6 mg PO DAILY@1200 Pravastatin Sodium [Pravachol] 40 mg PO HS Polyethylene Glycol 3350 [Miralax] 17 gm PO DAILY Cholecalciferol [Vitamin D3 (25 Mcg = 1000 Iu)] 25 mcg PO DAILY Omeprazole 20 mg PO BID Levothyroxine Sodium [Synthroid] 75 mcg PO MOTUWETHFRSA Divalproex [Depakote] 250 mg PO HS Acetaminophen Tab [Tylenol] 500 mg PO BID traMADol HCl [Ultram] 50 mg PO HS #10 tab Discontinued Losartan Potassium [Cozaar] 25 mg PO DAILY Discharge Medication List Acetaminophen Tab [Tylenol] 500 mg PO BID 01/31/21 [History] Calcium Carb-Vit D 500Mg-5Mcg [Oscal 500+D 5 Mcg (200 Iu)] 1 tab PO BID 01/31/21 [History] Cholecalciferol [Vitamin D3 (25 Mcg = 1000 Iu)] 25 mcg PO DAILY 01/31/21 [History] Divalproex [Depakote] 250 mg PO HS 01/31/21 [History] Folic Acid 6 mg PO DAILY@1200 01/31/21 [History] Levothyroxine Sodium [Synthroid] 75 mcg PO MOTUWETHFRSA 01/31/21 [History] Multivitamins, Thera [Multivitamin (formulary)] 1 tab PO DAILY 01/31/21 [History] Omeprazole 20 mg PO BID 01/31/21 [History] Polyethylene Glycol 3350 [Miralax] 17 gm PO DAILY 01/31/21 [History] Pravastatin Sodium [Pravachol] 40 mg PO HS 01/31/21 [History] Propylene Glycol [Systane Complete] 1 drop BOTH EYES BID 01/31/21 [History] metHOTREXate sodium [Methotrexate] 10 mg PO WE@2100 01/31/21 [History] metHOTREXate sodium [Methotrexate] 12.5 mg PO WE@0800 01/31/21 [History] predniSONE [Deltasone] 20 mg PO DAILY 01/31/21 [History] Pregabalin [Lyrica] 100 mg PO BID #10 cap 02/02/21 [Rx] traMADol HCl [Ultram] 50 mg PO HS #10 tab 02/02/21 [Rx] Follow up Appointment(s)/Referral(s): Vu Rhoades DO [Primary Care Provider] - 1-2 days Activity/Diet/Wound Care/Special Instructions: Patient is going to [facility]CF activity as tolerated continue with current heart healthy diet Follow-up with primary care provider upon discharge Continue with physical therapy Discharge Disposition: TRANSFER TO SNF/ECF
[2021-02-07] MEDS ORDERED: metHOTREXate sodium 2.5 MG TAB PO SCH ×2 (08:00→21:00)
== END 2021-02-02 14:34 ==
LOC: EC 17:07 → 5NMEDONC 20:18
PROVIDERS: ADMIT Hospitalist; ATTEND Hospitalist
DX: R53.1 Weakness (principal); R50.9 Fever, unspecified; M06.9 Rheumatoid arthritis, unspecified; I10 Essential (primary) hypertension; E78.5 Hyperlipidemia, unspecified; F31.9 Bipolar disorder, unspecified; D84.821 Immunodeficiency due to drugs; R00.0 Tachycardia, unspecified; G89.29 Other chronic pain; K59.00 Constipation, unspecified; R32 Unspecified urinary incontinence; E89.0 Postprocedural hypothyroidism; E66.9 Obesity, unspecified; Z68.28 Body mass index [BMI] 28.0-28.9, adult; G62.9 Polyneuropathy, unspecified; I95.9 Hypotension, unspecified; K21.9 Gastro-esophageal reflux disease without esophagitis; Z20.822 Contact with and (suspected) exposure to COVID-19; Z90.710 Acquired absence of both cervix and uterus; Z79.899 Other long term (current) drug therapy; Z79.890 Hormone replacement therapy; Z79.52 Long term (current) use of systemic steroids; Z79.891 Long term (current) use of opiate analgesic; Z88.0 Allergy status to penicillin; Z88.1 Allergy status to other antibiotic agents; Z87.440 Personal history of urinary (tract) infections; Z87.891 Personal history of nicotine dependence; Z82.49 Family history of ischemic heart disease and other diseases of the circulatory system; Z82.61 Family history of arthritis
CPT/HCPCS: 96361 ×2; 96365; 96366; 96372; 99285; 36415; 93005; 97530; 97162; 97166; 80053; 80048; 82607; 83605; 83735; 84484; 85025; 85610; 85730; 81001; 87086; 87635; 73610; 71046; 70450; G0378 ×3; J0696 ×2; J1650; J7512 ×2

== ENCOUNTER 2021-02-22 15:33 | Inpatient (IN) | payer MEDICARE ==
[2021-02-22 15:47] LABS: Glucose,Whole Blood 119 mg/dL (75-99)
[2021-02-22 16:02] LABS: Basophils % (A) 0 %; Eosinophils # (A) 0.1 k/uL (0-0.7); Eosinophils % (A) 1 %; HCT 41.5 % (34.0-46.0); HGB 13.9 gm/dL (11.4-16.0); Lymphocytes # (A) 0.8 k/uL (1.0-4.8); Lymphocytes % (A) 9 %; MCH 34.1 pg (25.0-35.0); MCHC 33.6 g/dL (31.0-37.0); MCV 101.6 fL (80.0-100.0); Macrocytosis Slight; Mean Platelet Volume 7.7; Monocytes # (A) 0.4 k/uL (0-1.0); Monocytes % (A) 4 %; Neutrophils # (A) 7.4 k/uL (1.3-7.7); Neutrophils % (A) 85 %; Platelet Count 176 k/uL (150-450); RBC 4.08 m/uL (3.80-5.40); RDW 15.3 % (11.5-15.5); WBC 8.7 k/uL (3.8-10.6)
--- NOTE | 2021-02-22 16:02 | ED ---
Neuro HPI - General Stated Complaint: neuro deficit Time Seen by Provider: 02/22/21 15:38 Source: family, EMS Mode of arrival: EMS Limitations: no limitations - History of Present Illness Is the patient presenting with stroke symptoms?: Yes Last Known Well Date: 02/22/21 Last Known Well Time: 11:00 -: awoke with symptoms Initial Comments: Is a 75-year-old female to history of rheumatoid arthritis who presents emergency department for weakness. The patient is having a difficult time giving history so the history is obtained from the EMS providers and the patient's . Barely the patient was recently hospitalized here for similar symptoms of generalized weakness. It was thought that this was due to deconditioning and she was sent to medical [place] for rehab. She spent the last 3 weeks there and apparently was treated for urinary tract infection and her last dose of antibiotics was yesterday. The patient went home yesterday. At that time she was able to ambulate with a walker or cane. She was able to walk up the stairs and was able to transfer from her bed to the bedside commode. The states that he believes that in the middle the night she did get up and move over to the bedside commode and got into bed however then she slept until about 11:00 this morning. The was not in the room but he heard a thud and found her laying backwards on the bed. He attempted to assist her up to the bedside commode because she had used the restroom and found her to be very weak. He was able to assist her to the commode and then to the couch however when she had used the bathroom again he again noted that she was very weak so he called EMS. The did note a little bit of a left facial droop which is abnormal. He states that she does have some slurring of her speech however states that she's been doing that and also she's been having a little bit confusion over the last couple of weeks. Last known normal was likely some time yesterday evening or overnight. Of note the patient was found to have a mild elevation in her temperature 100.0 by EMS. Blood sugar is 125. - Related Data Home Medications: Home Medications Medication Instructions Recorded Confirmed Acetaminophen Tab [Tylenol] 500 - 1,000 mg PO Q6H PRN 01/31/21 02/22/21 Calcium Carb-Vit D 500Mg-5Mcg 1 tab PO BID 01/31/21 02/22/21 [Oscal 500+D 5 Mcg (200 Iu)] Cholecalciferol [Vitamin D3 (25 25 mcg PO HS 01/31/21 02/22/21 Mcg = 1000 Iu)] Divalproex [Depakote] 250 mg PO HS 01/31/21 02/22/21 Folic Acid 6 mg PO DAILY@1200 01/31/21 02/22/21 Levothyroxine Sodium [Synthroid] 75 mcg PO [id number] 01/31/21 02/22/21 Multivitamins, Thera [Multivitamin 1 tab PO DAILY 01/31/21 02/22/21 (formulary)] Omeprazole 20 mg PO BID 01/31/21 02/22/21 Polyethylene Glycol 3350 [Miralax] 17 gm PO DAILY 01/31/21 02/22/21 Pravastatin Sodium [Pravachol] 40 mg PO HS 01/31/21 02/22/21 Propylene Glycol [Systane Complete] 1 drop BOTH EYES BID 01/31/21 02/22/21 metHOTREXate sodium [Methotrexate] 10 mg PO WE@2100 01/31/21 02/22/21 metHOTREXate sodium [Methotrexate] 12.5 mg PO WE@0800 01/31/21 02/22/21 predniSONE [Deltasone] 20 mg PO HS 01/31/21 02/22/21 Losartan [Cozaar] 25 mg PO DAILY 02/22/21 02/22/21 traMADol HCl [Ultram] 50 mg PO HS PRN 02/22/21 02/22/21 Allergies/Adverse Reactions: Allergies Allergy/AdvReac Type Severity Reaction Status Date / Time Penicillins Allergy Rash/Hives Verified 02/22/21 17:03 azithromycin AdvReac Abdominal Verified 02/22/21 17:03 Pain Review of Systems ROS Statement: Those systems with pertinent positive or pertinent negative responses have been documented in the HPI. ROS Other: All systems not noted in ROS Statement are negative. General Exam - General Exam Comments Initial Comments: Constitutional: Awake alert Appears comfortable Head: Normocephalic atraumatic Eyes: no conjunctival injection No scleral icterus EOMI, pupils are 4 mm and reactive bilaterally Neck: No JVD Supple Heart: Regular rate rhythm normal S1-S2 no murmurs Lungs: Clear to auscultation bilaterally No wheezing No rales Abdomen: Soft nondistended nontender Extremities: Non edematous DP pulses intact Radial pulses intact Neuro: [Patient is awake and alert however unable to tell me the month. She is able to make the age. She has some repetitive speech at times. She is able to name that I have appended in my hand however when I asked her what was on my wrist she kept repeating the word 10. She does have a noticeable left-sided facial droop. She was able to hold both of her arms up for 10 seconds however did seem a little bit weaker in the left side when compared to the right. Both lower extremities felt to the bed after a couple of seconds of attempting to hold them up. They seem to be equally weak. The patient does have some slurring of her words and questionable aphasia with the difficulty naming simple objects. NIH of 7 initially on examination Psych: Appropriate mood and affect Limitations: no limitations Stroke MDM - Lab Data Result diagrams: 02/22/21 15:38 02/22/21 15:38 Lab Results 02/22/21 02/22/21 02/22/21 Range/Units 15:38 15:38 15:38 WBC 8.7 (3.8-10.6) k/uL RBC 4.08 (3.80-5.40) m/uL Hgb 13.9 (11.4-16.0) gm/dL Hct 41.5 (34.0-46.0) % MCV 101.6 H (80.0-100.0) fL MCH 34.1 (25.0-35.0) pg MCHC 33.6 (31.0-37.0) g/dL RDW 15.3 (11.5-15.5) % Plt Count 176 (150-450) k/uL MPV 7.7 Neutrophils % 85 % Lymphocytes % 9 % Monocytes % 4 % Eosinophils % 1 % Basophils % 0 % Neutrophils # 7.4 (1.3-7.7) k/uL Lymphocytes # 0.8 L (1.0-4.8) k/uL Monocytes # 0.4 (0-1.0) k/uL Eosinophils # 0.1 (0-0.7) k/uL Basophils # 0.0 (0-0.2) k/uL Macrocytosis Slight PT 10.6 (9.0-12.0) sec INR 1.0 (<1.2) APTT 24.3 (22.0-30.0) sec Sodium 137 (137-145) mmol/L Potassium 4.8 (3.5-5.1) mmol/L Chloride 103 (98-107) mmol/L Carbon Dioxide 30 (22-30) mmol/L Anion Gap 4 mmol/L BUN 27 H (7-17) mg/dL Creatinine 1.32 H (0.52-1.04) mg/dL Est GFR (CKD-EPI)AfAm 46 (>60 ml/min/1.73 sqM) Est GFR (CKD-EPI)NonAf 40 (>60 ml/min/1.73 sqM) Glucose 120 H (74-99) mg/dL POC Glucose (mg/dL) (75-99) mg/dL POC Glu Custom Protection Officer ID Plasma Lactic Acid [place] (0.7-2.0) mmol/L Calcium 9.5 (8.4-10.2) mg/dL Total Bilirubin 0.9 (0.2-1.3) mg/dL AST 37 H (14-36) U/L ALT 25 (4-34) U/L Alkaline Phosphatase 90 (38-126) U/L Troponin I (0.000-0.034) ng/mL Total Protein 6.2 L (6.3-8.2) g/dL Albumin 3.6 (3.5-5.0) g/dL Urine Color Urine Appearance (Clear) Urine pH (5.0-8.0) Ur Specific [place] (1.001-1.035) Urine Protein (Negative) Urine Glucose (UA) (Negative) Urine Ketones (Negative) Urine Blood (Negative) Urine Nitrite (Negative) Urine Bilirubin (Negative) Urine Urobilinogen (<2.0) mg/dL Ur Leukocyte Esterase (Negative) 02/22/21 02/22/21 02/22/21 Range/Units 15:38 15:39 15:45 WBC (3.8-10.6) k/uL RBC (3.80-5.40) m/uL Hgb (11.4-16.0) gm/dL Hct (34.0-46.0) % MCV (80.0-100.0) fL MCH (25.0-35.0) pg MCHC (31.0-37.0) g/dL RDW (11.5-15.5) % Plt Count (150-450) k/uL MPV Neutrophils % % Lymphocytes % % Monocytes % % Eosinophils % % Basophils % % Neutrophils # (1.3-7.7) k/uL Lymphocytes # (1.0-4.8) k/uL Monocytes # (0-1.0) k/uL Eosinophils # (0-0.7) k/uL Basophils # (0-0.2) k/uL Macrocytosis PT (9.0-12.0) sec INR (<1.2) APTT (22.0-30.0) sec Sodium (137-145) mmol/L Potassium (3.5-5.1) mmol/L Chloride (98-107) mmol/L Carbon Dioxide (22-30) mmol/L Anion Gap mmol/L BUN (7-17) mg/dL Creatinine (0.52-1.04) mg/dL Est GFR (CKD-EPI)AfAm (>60 ml/min/1.73 sqM) Est GFR (CKD-EPI)NonAf (>60 ml/min/1.73 sqM) Glucose (74-99) mg/dL POC Glucose (mg/dL) 119 H (75-99) mg/dL POC Glu Custom Protection Officer ID RichardJone petersen Plasma Lactic Acid [place] 1.4 (0.7-2.0) mmol/L Calcium (8.4-10.2) mg/dL Total Bilirubin (0.2-1.3) mg/dL AST (14-36) U/L ALT (4-34) U/L Alkaline Phosphatase (38-126) U/L Troponin I 0.030 (0.000-0.034) ng/mL Total Protein (6.3-8.2) g/dL Albumin (3.5-5.0) g/dL Urine Color Urine Appearance (Clear) Urine pH (5.0-8.0) Ur Specific [place] (1.001-1.035) Urine Protein (Negative) Urine Glucose (UA) (Negative) Urine Ketones (Negative) Urine Blood (Negative) Urine Nitrite (Negative) Urine Bilirubin (Negative) Urine Urobilinogen (<2.0) mg/dL Ur Leukocyte Esterase (Negative) 05/27/21 Range/Units 17:25 WBC (3.8-10.6) k/uL RBC (3.80-5.40) m/uL Hgb (11.4-16.0) gm/dL Hct (34.0-46.0) % MCV (80.0-100.0) fL MCH (25.0-35.0) pg MCHC (31.0-37.0) g/dL RDW (11.5-15.5) % Plt Count (150-450) k/uL MPV Neutrophils % % Lymphocytes % % Monocytes % % Eosinophils % % Basophils % % Neutrophils # (1.3-7.7) k/uL Lymphocytes # (1.0-4.8) k/uL Monocytes # (0-1.0) k/uL Eosinophils # (0-0.7) k/uL Basophils # (0-0.2) k/uL Macrocytosis PT (9.0-12.0) sec INR (<1.2) APTT (22.0-30.0) sec Sodium (137-145) mmol/L Potassium (3.5-5.1) mmol/L Chloride (98-107) mmol/L Carbon Dioxide (22-30) mmol/L Anion Gap mmol/L BUN (7-17) mg/dL Creatinine (0.52-1.04) mg/dL Est GFR (CKD-EPI)AfAm (>60 ml/min/1.73 sqM) Est GFR (CKD-EPI)NonAf (>60 ml/min/1.73 sqM) Glucose (74-99) mg/dL POC Glucose (mg/dL) (75-99) mg/dL POC Glu Custom Protection Officer ID Plasma Lactic Acid Jackson (0.7-2.0) mmol/L Calcium (8.4-10.2) mg/dL Total Bilirubin (0.2-1.3) mg/dL AST (14-36) U/L ALT (4-34) U/L Alkaline Phosphatase (38-126) U/L Troponin I (0.000-0.034) ng/mL Total Protein (6.3-8.2) g/dL Albumin (3.5-5.0) g/dL Urine Color Light Yellow Urine Appearance Clear (Clear) Urine pH 7.5 (5.0-8.0) Ur Specific [place] 1.023 (1.001-1.035) Urine Protein Negative (Negative) Urine Glucose (UA) Negative (Negative) Urine Ketones Negative (Negative) Urine Blood Negative (Negative) Urine Nitrite Negative (Negative) Urine Bilirubin Negative (Negative) Urine Urobilinogen <2.0 (<2.0) mg/dL Ur Leukocyte Esterase Negative (Negative) - Medical Decision Making Is a 75-year-old female who presents emergency department for strokelike symptoms. The patient was x-rayed as a code stroke however after speaking with the was determined that the last time normal was sometime last night. The patient had an NIH of 7 for left sided facial droop bilateral lower [place] weakness slurred speech and questionable aphasia. I did speak with the neurologist on-call who did not recommend TPA and felt that her symptoms may be more metabolic in nature. CT of the head did not reveal any acute changes. CTA no LV all. The patient could be admitted to Dr. Rodney walter for further workup and possible neurology consultation. Patient family were updated and agree with plan of care. Past Medical History Past Medical History: Hyperlipidemia, Hypertension, Rheumatoid Arthritis (RA), Thyroid Disorder Additional Past Medical History / Comment(s): RA/chronic pain, hypothyroid, UTI, occasional urine incontinence, constipation. History of Any Multi-Drug Resistant Organisms: None Reported Past Surgical History: Breast Surgery, Hysterectomy, Orthopedic Surgery, Tonsillectomy Additional Past Surgical History / Comment(s): Bilateral feet/ankles [place] Hiren procedures/hardware in place, D&Cs, partial thyroidectomy d/t nodules, tongue lesion/benign biopsy, colonoscopy. Past Anesthesia/Blood Transfusion Reactions: No Reported Reaction Past Psychological History: Bipolar Smoking Status: Former smoker Past Alcohol Use History: None Reported Past Drug Use History: None Reported - Past Family History Father Family Medical History: Coronary Artery Disease (CAD), Myocardial Infarction ([place]) Additional Family Medical History / Comment(s): Father of a [place] at the age of 83yrs. Mother Family Medical History: Rheumatoid Arthritis (RA) Additional Family Medical History / Comment(s): Mother lived to be 83 yrs old. Course Vital Signs 02/22/21 02/22/21 15:41 15:54 Temperature 99.4 F 99.4 F Pulse Rate 105 H 102 H Respiratory 18 16 Rate Blood Pressure 139/102 138/68 O2 Sat by Pulse 96 Oximetry - Reevaluation(s) Reevaluation #1: EKG showing sinus tachycardia with a rate of 106. No abnormal ST segment changes or T-wave inversions. There is a right bundle-branch block. QTC is 456. No ectopy. 02/22/21 16:15 Reevaluation #2: Spoke with Dr. mcmanus of are about the patient. Patient is not TPA candidate because of outside of the window. Suspect the patient's symptoms are more metabolic in nature. 02/22/21 16:27 Disposition Clinical Impression: Stroke-like symptoms Disposition: ADMITTED IP TO THIS HOSP Condition: Stable Referrals: Vu Rhoades DO [Primary Care Provider] - 1-2 days
--- NOTE | 2021-02-22 16:13 | CT ---
EXAMINATION TYPE: CT brain wo con for TPA DATE OF EXAM: 02/22/2021 HISTORY: left side weakness, facial droop CT DLP: 1011 mGycm. Automated Exposure Control for Dose Reduction was Utilized. TECHNIQUE: CT scan of the head is performed without contrast. COMPARISON: CT brain January 31, 2021. FINDINGS: There is no acute intracranial hemorrhage or midline shift identified. There is moderate to severe diffuse ventricular and sulcal prominence consistent with diffuse age-related cerebral atro phy. There is mild to moderate low-attenuation in the periventricular white matter consistent with c hronic small vessel ischemic change. 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 Scleral calcification bilateral globes. Visualized paranasal sinuses are clear. IMPRESSION: No acute intracranial hemorrhage or midline shift. There is moderate to severe diffuse age-related cerebral atrophy and mild to moderate chronic small vessel ischemic change along with rig ht frontal craniotomy change and adjacent encephalomalacia all redemonstrated. No significant change from most recent CT.
[2021-02-22 16:17] LABS: Albumin 3.6 g/dL (3.5-5.0); Calcium 9.5 mg/dL (8.4-10.2); Potassium 4.8 mmol/L (3.5-5.1); Total Bilirubin 0.9 mg/dL (0.2-1.3); Total Protein 6.2 g/dL (6.3-8.2)
[2021-02-22 16:19] LABS: Partial Thromboplastin Time 24.3 sec (22.0-30.0); Prothrombin Time 10.6 sec (9.0-12.0)
--- NOTE | 2021-02-22 16:29 | XR ---
EXAMINATION TYPE: XR chest 2V DATE OF EXAM: 02/22/2021 COMPARISON: Chest x-ray January 31, 2021 HISTORY: Altered mental status and weakness. TECHNIQUE: Frontal and lateral views of the chest are obtained. FINDINGS: There are low lung volumes and chronic parenchymal changes. There is no focal air space [place], pleural effusion, or pneumothorax seen. The cardiac silhouette size remains enlarged. The os seous structures are demineralized. Surgical clips in the neck region noted. IMPRESSION: Cardiomegaly and chronic parenchymal changes without acute pulmonary process.
--- NOTE | 2021-02-22 16:52 | CT ---
EXAMINATION TYPE: CT angio head neck DATE OF EXAM: 02/22/2021 HISTORY: left side weakness, facial droop COMPARISON: None. CT DLP: 366.4 mGycm. Automated Exposure Control for Dose Reduction was Utilized. TECHNIQUE: CTA scan of the head and neck are performed with IV Contrast, patient injected with 65 mL of Isovue 370, axial images are obtained, coronal and sagittal reformatted images are reviewed. Thre e-D reconstructed images are created on an independent workstation and reviewed. FINDINGS: Carotid/Vascular Structures: Normal 3 vessel origin from the aortic arch. Normal origin right common carotid artery from the brachiocephalic artery. Mild to moderate peripheral calcified plaque left car otid bulb. Mild plaque right carotid bulb. No significant stenosis bilaterally. Patent external carot id arteries bilaterally without significant plaque or stenosis. Tortuous course to the mid to distal right internal carotid artery. Codominant vertebrobasilar system . Vertebral arteries patent to the basilar junction. Patent right p osterior communicating artery. Small caliber but patent left posterior communicating artery. No signi ficant focal stenosis or aneurysm. Patent anterior communicating artery. No significant focal stenosi s or aneurysm. Other: Thyroid gland surgically absent or atrophic. Mosaic attenuation upper lungs consistent with mi ld diffuse alveolar edema. Moderate multilevel disc space narrowing C3-C4 through C6-C7 levels. IMPRESSION: No significant stenosis in common or internal carotid arteries bilaterally. No significa nt stenosis or aneurysm at level of m[place]grath of [place].
[2021-02-22 17:31] LABS: Appearance,Urine Clear (Clear); Bilirubin,Urine Negative (Negative); Blood,Urine Negative (Negative); Color,Urine Light Yellow; Glucose,Urine (UA) Negative (Negative); Ketones,Urine Negative (Negative); Leukocyte Esterase,Urine Negative (Negative); Nitrite,Urine Negative (Negative); PH, Urine 7.5 (5.0-8.0); Protein,Urine Negative (Negative); Specific Gravity,Urine 1.023 (1.001-1.035); Urobilinogen,Urine <2.0 mg/dL (<2.0)
[2021-02-22] MEDS ORDERED: ACETAMINOPHEN TAB 500 MG TAB PO PRN (20:55)
[2021-02-22] MEDS ORDERED: traMADol 50 MG TAB PO PRN (20:55)
[2021-02-22] MEDS ORDERED: HYDROcodone/APAP 5-325MG 1 EACH TAB PO PRN (20:57)
[2021-02-22] MEDS ORDERED: ALPRAZolam 0.25 MG TAB PO PRN (20:57)
[2021-02-22] MEDS ORDERED: DIVALPROEX 250 MG TABLET.DR PO SCH (21:00)
[2021-02-22] MEDS: PRAVASTATIN SODIUM 40 MG TAB PO SCH (22:00)
[2021-02-22] MEDS: predniSONE 20 MG TAB PO SCH (22:00)
[2021-02-22] MEDS: CHOLECALCIFEROL 25 MCG (1000 IU) TABLET PO SCH (22:00)
[2021-02-22] MEDS: CALCIUM CARB-VIT D 500 MG-5 MCG TAB PO SCH (22:00)
[2021-02-22] MEDS: ARTIFICIAL TEARS-HYPROMELLOSE DROPS 15 ML BTL BOTH EYES SCH (22:00)
[2021-02-22] MEDS: HEPARIN SODIUM,PORCINE/PF 5,000 UNIT/0.5 ML SYRINGE SQ SCH (22:01)
[2021-02-22] MEDS: SODIUM CHLORIDE 0.9% 1,000 ML IV SCH (22:02)
--- NOTE | 2021-02-22 22:09 | HP ---
HISTORY AND PHYSICAL CHIEF COMPLAINT: Weakness. HISTORY OF PRESENT ILLNESS: This 75-year-old woman with a past medical history of multiple medical problems, including rheumatoid arthritis, hypertension, hypothyroidism, GERD, was recently admitted with generalized weakness. The patient was thought to have significant deconditioning and severe peripheral neuropathy. Acute renal failure was also considered during that time. The patient went home. Currently the patient is complaining of significant weakness. The patient lives with her . The patient was also complaining of severe pain in both legs and because of multiple complications, the patient was taken to [facility] and admitted for further evaluation and treatment. The patient spent the last 3 weeks in [facility]. The patient also had a UTI; antibiotics stopped yesterday. The patient's reports that it is very difficult for the patient to be transferred to the bed and even up to the commode. The patient also had a fall during nighttime, according to her . There is no history of any fever, rigor or chills. No history of headache, loss of consciousness, seizures at this time. Some minimal left facial droop was also suspected in the ER, raising the possibility of TIA or acute stroke. Neurology consultation has been obtained and CT scan of the brain showed no acute abnormality. Diffuse changes were noted. CT angio of the brain showed no evidence of any significant stenosis. There is no history of any fever, rigors or chills at this time. PAST MEDICAL HISTORY: History of hypertension, hyperlipidemia, rheumatoid arthritis, history of chronic pain syndrome, breast surgery, bipolar. HOME MEDICATIONS: Ultram, Deltasone, methotrexate, Systane, Pravachol, MiraLAX, multivitamin, Cozaar, Synthroid, Depakene, vitamin D3, calcium, vitamin D. ALLERGIES: PENICILLIN and ZITHROMAX. FAMILY HISTORY: History of CAD, myocardial infarction. SOCIAL HISTORY: Previous history of smoking. No history of alcohol intake. REVIEW OF SYSTEMS: ENT: Diminished hearing. Diminished vision. CARDIOVASCULAR SYSTEM: No angina, palpitations. RESPIRATORY SYSTEM: No cough, hemoptysis. GI: No nausea, vomiting. : No dysuria or retention. NERVOUS SYSTEM: No numbness, weakness. ALLERGY/IMMUNOLOGY: No asthma, hayfever. MUSCULOSKELETAL: As mentioned earlier. HEMATOLOGY/ONCOLOGY: No history of anemia. ENDOCRINE: As mentioned earlier. CONSTITUTIONAL: As mentioned earlier. DERMATOLOGY: As mentioned earlier. RHEUMATOLOGY: As mentioned earlier. PSYCHIATRY: Negative. PHYSICAL EXAMINATION: Alert and oriented x3. Pulse 101, blood pressure 115/73, respirations 16, temperature 99.4, pulse ox 94% on room air. HEENT: Conjunctivae normal. NECK: No jugular venous distention. CARDIOVASCULAR SYSTEM: S1, S2 muffled. RESPIRATORY SYSTEM: Breath sounds diminished at the bases. A few scattered rhonchi and crackles. ABDOMEN: Soft, non-tender. No mass palpable. LEGS: No edema. No swelling. Significant tenderness present otherwise of the limbs. Diffuse contractures and some painful movements also present. Gait not tested. Patient is unable to ambulate at this time. NERVOUS SYSTEM: Diffusely weak. SKIN: No ulcer, rash, bleeding. JOINTS: As mentioned earlier. LABS: WBC 8.7, hemoglobin 13.9, and lymphocytes are 0.02. Creatinine is 1.32. The baseline creatinine was 1.2. BUN is 27, which is increased. COVID-19 is negative. ASSESSMENT: 1. Weakness and left facial droop suspected. Rule out acute stroke. 2. Gait dysfunction. 3. Increased creatinine with possibly acute on chronic kidney disease. 4. Increased mean corpuscular volume. 5. Hypertension. 6. Hyperlipidemia. 7. History of rheumatoid arthritis with contractures. 8. Gait dysfunction. 9. Hypothyroidism. 10.Chronic pain syndrome. 11.Bilateral leg pain. 12.History of urinary tract infection. 13.History of urinary incontinence. 14.History of constipation. 15.History of degenerative joint disease. 16.History of bipolar. RECOMMENDATIONS AND DISCUSSION: In this 75-year-old woman who presented with multiple complex medical issues, we will monitor the patient closely, continue the current medications, continue symptomatic treatment. We offered PT/OT evaluation and neurology consultation. Neurovascular workup. Prognosis guarded because of the multiple complex medical issues. Further recommendations to follow. Also recommend PT/OT evaluation. health workers and case management coordinator to evaluate the home situation as well because it seems like the is having difficulty in coping with the patient's multitude of illnesses. MMODL / IJN: [id number] /
[2021-02-23 06:42] LABS: Basophils % (A) 0 %; Eosinophils % (A) 0 %; HCT 39.5 % (34.0-46.0); HGB 13.3 gm/dL (11.4-16.0); Lymphocytes # (A) 0.7 k/uL (1.0-4.8); Lymphocytes % (A) 7 %; MCHC 33.6 g/dL (31.0-37.0); MCV 101.3 fL (80.0-100.0); Macrocytosis Slight; Mean Platelet Volume 7.9; Monocytes # (A) 0.2 k/uL (0-1.0); Monocytes % (A) 2 %; Neutrophils # (A) 8.9 k/uL (1.3-7.7); Neutrophils % (A) 90 %; Platelet Count 194 k/uL (150-450); RDW 15.3 % (11.5-15.5); WBC 9.9 k/uL (3.8-10.6)
[2021-02-23] MEDS: LEVOTHYROXINE 75 MCG TAB PO SCH (06:52)
[2021-02-23 06:58] LABS: Calcium 9.3 mg/dL (8.4-10.2); Potassium 4.6 mmol/L (3.5-5.1)
[2021-02-23 07:16] LABS: C Reactive Protein 8.7 mg/dL (<1.0)
[2021-02-23] MEDS ORDERED: PANTOPRAZOLE 40 MG TABLET PO SCH (07:30)
[2021-02-23] MEDS: HEPARIN SODIUM,PORCINE/PF 5,000 UNIT/0.5 ML SYRINGE SQ SCH ×2 (07:59→20:14)
[2021-02-23] MEDS: ARTIFICIAL TEARS-HYPROMELLOSE DROPS 15 ML BTL BOTH EYES SCH ×2 (07:59→20:19)
[2021-02-23] MEDS: SODIUM CHLORIDE 0.9% 1,000 ML IV SCH ×3 (07:59→22:53)
[2021-02-23] MEDS: PANTOPRAZOLE 40 MG TABLET PO SCH (08:00)
[2021-02-23] MEDS: polyethylene glycoL 3350 17 GM POWD.PACK PO SCH (08:00)
[2021-02-23] MEDS: CALCIUM CARB-VIT D 500 MG-5 MCG TAB PO SCH ×2 (08:00→20:14)
[2021-02-23] MEDS: MULTIVITAMINS, THERA 1 EACH TAB PO SCH (08:00)
[2021-02-23] MEDS: LOSARTAN 25 MG TAB PO SCH (08:00)
[2021-02-23 10:52] LABS: Erythrocyte Sedimentation Rate 19 mm/hr (0-20)
--- NOTE | 2021-02-23 13:44 | P.PN ---
Subjective Progress Note Date: 02/23/21 This is a 75-year-old female who was recently admitted with generalized weakness and is being closely monitored. Patient was recently at an ECF facility for generalized deconditioning with significant weakness and was recently discharged and went home with and became increasingly weak requiring maximum assistance with the possibility of some left facial droop with possible TIA and was brought to the emergency room for further evaluation. Neurology has been consulted and pending. CT angiogram the brain showed no evidence of any significant stenosis and CT of the brain showed no acute abnormality. PT/OT to evaluate the patient as patient will require placement. Labs: White blood count is 9.9, hemoglobin is 13.3, sodium is 139 with a potassium of 4.6, BUN is 29, creatinine slightly improved at 1.28 and CRP is 8.7. Urinalysis was negative and coronavirus was negative. Review of systems: Constitutional: No reports of fatigue, fever, or chills Cardiovascular: No reports of chest pain or palpitations Respiratory: No reports of shortness of breath or cough GI: No reports of nausea, vomiting, or diarrhea, reports decreased oral intake as she does not like the food here : No reports of dysuria or retention Neurovascular: Reports generalized weakness All medications have been reviewed Active Medications Acetaminophen (Acetaminophen Tab 500 Mg Tab) 500 - 1,000 mg PO Q6H PRN PRN Reason: Pain Last Admin: 02/22/21 22:01 Dose: 1,000 mg Documented by: Hydrocodone Bitart/Acetaminophen (Hydrocodone/Apap 5-325mg 1 Each Tab) 1 each PO Q6HR PRN PRN Reason: Pain Alprazolam (Alprazolam 0.25 Mg Tab) 0.25 mg PO TID PRN PRN Reason: Anxiety Artificial Tears (Artificial Tears-Hypromellose Drops 15 Ml Btl) 1 drops BOTH EYES BID [facility] Last Admin: 02/23/21 07:59 Dose: 1 drops Documented by: Calcium Carbonate (Calcium Carb-Vit D 500 Mg-5 Mcg Tab) 1 each PO BID [facility] Last Admin: 02/23/21 08:00 Dose: 1 each Documented by: Cholecalciferol (Cholecalciferol 25 Mcg (1000 Iu) Tablet) 25 mcg PO HS [facility] Last Admin: 02/22/21 22:00 Dose: 25 mcg Documented by: Divalproex Sodium (Divalproex 250 Mg Tablet.) 250 mg PO [facility] Last Admin: 02/22/21 22:01 Dose: 250 mg Documented by: Folic Acid (Folic Acid 1 Mg Tab) 6 mg PO DAILY@1200 [facility] Heparin Sodium (Porcine) (Heparin Sodium,Porcine/Pf 5,000 Unit/0.5 Ml Syringe) 5,000 unit SQ Q12HR [facility] Last Admin: 02/23/21 07:59 Dose: 5,000 unit Documented by: Sodium Chloride (Saline 0.9%) 1,000 mls @ 100 mls/hr IV .Q10H [facility] Last Admin: 02/23/21 07:59 Dose: Not Given Documented by: Levothyroxine Sodium (Levothyroxine 75 Mcg Tab) 75 mcg PO MOTUWETHFRSA [facility] Last Admin: 02/23/21 06:52 Dose: 75 mcg Documented by: Losartan Potassium (Losartan 25 Mg Tab) 25 mg PO DAILY [facility] Last Admin: 02/23/21 08:00 Dose: 25 mg Documented by: Methotrexate (Methotrexate Sodium 2.5 Mg Tab) 12.5 mg PO WE@0800 [facility] Methotrexate (Methotrexate Sodium 2.5 Mg Tab) 10 mg PO WE@2100 [facility] Multivitamins (Multivitamins, Thera 1 Each Tab) 1 each PO DAILY [facility] Last Admin: 02/23/21 08:00 Dose: 1 each Documented by: Pantoprazole Sodium (Pantoprazole 40 Mg Tablet) 40 mg PO DAILY@0730 [facility] Last Admin: 02/23/21 08:00 Dose: 40 mg Documented by: Polyethylene Glycol (Polyethylene Glycol 3350 17 Gm Powd.Pack) 17 gm PO DAILY [facility] Last Admin: 02/23/21 08:00 Dose: 17 gm Documented by: Pravastatin Sodium (Pravastatin Sodium 40 Mg Tab) 40 mg PO [facility] Last Admin: 02/22/21 22:00 Dose: 40 mg Documented by: Prednisone (Prednisone 20 Mg Tab) 20 mg PO [facility] Last Admin: 02/22/21 22:00 Dose: 20 mg Documented by: Tramadol HCl (Tramadol 50 Mg Tab) 50 mg PO PRN PRN Reason: Pain Objective - Vital Signs Vital signs: Vital Signs Temp 99.4 F 02/22/21 15:54 Pulse 72 02/23/21 07:57 Resp 16 02/23/21 07:57 BP 141/69 02/23/21 07:57 Pulse Ox 95 05/28/21 07:57 Intake & Output 02/22/21 02/23/21 02/23/21 18:59 06:59 18:59 Weight 77.519 kg - Exam Gen: This is a 75-year-old female awake, alert and oriented 3, well-developed, well-nourished. Pulse is 72, respirations are 16, blood pressure is 141/69, oxygen saturation is 95% on room air. HEENT: Head is atraumatic, normocephalic. Pupils equal, round. Sclerae is anicteric. NECK: Supple. No JVD. No lymphadenopathy. No thyromegaly. LUNGS: Manage breath sounds bilaterally with some scattered rhonchi noted. No intercostal retractions. HEART: S1, S2 are muffled ABDOMEN: Soft. Obese, Bowel sounds are present. No masses. No tenderness. EXTREMITIES: No pedal edema. No calf tenderness. NEUROLOGICAL: Patient is awake, alert and oriented x3. Diffusely weak. - Labs CBC & Chem 7: 02/23/21 06:15 02/23/21 06:15 Labs: Abnormal Lab Results - Last 24 Hours (Table) 02/22/21 02/22/21 02/22/21 Range/Units 15:38 15:38 15:38 MCV 101.6 H (80.0-100.0) fL Neutrophils # (1.3-7.7) k/uL Lymphocytes # 0.8 L (1.0-4.8) k/uL BUN 27 H (7-17) mg/dL Creatinine 1.32 H (0.52-1.04) mg/dL Glucose 120 H (74-99) mg/dL POC Glucose (mg/dL) (75-99) mg/dL Uric Acid 8.4 H (3.7-7.4) mg/dL AST 37 H (14-36) U/L C-Reactive Protein (<1.0) mg/dL Total Protein 6.2 L (6.3-8.2) g/dL 02/22/21 02/23/21 02/23/21 Range/Units 15:45 06:15 06:15 MCV 101.3 H (80.0-100.0) fL Neutrophils # 8.9 H (1.3-7.7) k/uL Lymphocytes # 0.7 L (1.0-4.8) k/uL BUN 29 H (7-17) mg/dL Creatinine 1.28 H (0.52-1.04) mg/dL Glucose 148 H (74-99) mg/dL POC Glucose (mg/dL) 119 H (75-99) mg/dL Uric Acid (3.7-7.4) mg/dL AST (14-36) U/L C-Reactive Protein 8.7 H (<1.0) mg/dL Total Protein (6.3-8.2) g/dL Assessment and Plan Assessment: Weakness and left facial droop suspected, rule out acute stroke Gait dysfunction Increased creatinine with possible acute on chronic kidney disease Increased MCV hypertension Hyperlipidemia History of rheumatoid arthritis with contractures hypothyroidism Chronic pain syndrome Bilateral leg pain history of urinary tract infection History of urinary incontinence History of constipation history of degenerative joint disease history of bipolar Recommendations and discussion: Recommend to continue with current medications, management, and symptomatic treatment. PT/OT to evaluate the patient. Continue with neuro checks. Continue to encourage oral intake and will add ensures with meals as patient has not been eating very well. Case management and social work have been consulted to work on placement in safe discharge planning as the is unable to care for her in the home. Awaiting neurology consultation. Will repeat a.m. labs and continue to monitor closely. Due to multiple complex medical issues, prognosis is guarded. Further recommendations to follow.
[2021-02-23 13:46] LABS: Chol/HDL Ratio 4.23; LDL Cholesterol,Calculated 139.6 mg/dL (0.0-131.0); VLDL Calculation 31.4 mg/dL (5.00-40.00)
--- NOTE | 2021-02-23 15:32 | P.CNNES ---
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 History is obtained from patient's (Sivakumar) who is at bedside and daughter (Puja) via phone. According to the patient the patient had urinary tract infection and had generalized weakness and was deconditioned so she was in the rehab for 3 weeks and was discharged this past Friday from rehab. Upon presenting the home she was using her walker walking around. And was doing well on Friday. Then the about 11 AM patient stated that she was got up one to the bathroom the one back to sleep then all of a sudden the he was somewhere else and he heard a thud noise. He said that when he checked up on her she was in bed lying flat with her legs hanging out and he noticed that the she had the left facial droop and mumbling. He felt like she had generalized weakness and was leading somewhat towards the right. He denied that she had any gaze deviation, any jerking of the any extremities. He denies that any seizure episodes in the past. He feels that the patient's condition is lobe a better but not back to her baseline. He feels the left facial droop has resolved. He feels that the speech is the improved but she is not as talkative as prior. Some of the patient's home medication includes folic acid, Synthroid, pravastatin 40 mg daily at bedtime, Depakote 250 mg daily at bedtime, methotrexate, prednisone 20 mg daily, tramadol as needed, Some of the work-up in the hospital consisted of: CT of the head is reported as no acute intracranial hemorrhage or midline shift. There is moderate to severe diffuse age-related cerebral atrophy and mild to moderate chronic small vessel ischemic changes along with right frontal craniotomy change and adjacent encephalomalacia all redemonstrated. No sicca change from most recent CT. CT angiography of the head and neck was reported as no significant stenosis in the common or internal carotid artery bilaterally. No significant stenosis or aneurysm of the [place] of [place]. Initial white blood cell as 8.7 which is normal. MCV is 101.6. Sodium is 137 which is normal. The glucose is 120 which is unremarkable. Calcium is 9.5 which is normal. Plasma lactic acid vein is 1.4 which is normal. The creatinine is 1.32 the repeat is 1.28 but is slightly elevated. Lipid panel: Triglyceride is 157, cholesterol is 224, LDLs 139 and HDL is 53. Review of Systems Review of system: The 12 point system was reviewed and apparent positive and negative per HPI. Past Medical History Past Medical History: Hyperlipidemia, Hypertension, Rheumatoid Arthritis (RA), Thyroid Disorder Additional Past Medical History / Comment(s): RA/chronic pain, hypothyroid, UTI, occasional urine incontinence, constipation. History of Any Multi-Drug Resistant Organisms: None Reported Past Surgical History: Breast Surgery, Hysterectomy, Orthopedic Surgery, Tonsillectomy Additional Past Surgical History / Comment(s): Bilateral feet/ankles [employer] Hiren procedures/hardware in place, D&Cs, partial thyroidectomy d/t nodules, tongue lesion/benign biopsy, colonoscopy. Past Anesthesia/Blood Transfusion Reactions: No Reported Reaction Past Psychological History: Bipolar Smoking Status: Former smoker Past Alcohol Use History: None Reported Past Drug Use History: None Reported - Past Family History Father Family Medical History: Coronary Artery Disease (CAD), Myocardial Infarction (RI) Additional Family Medical History / Comment(s): Father of a RI at the age of 83yrs. Mother Family Medical History: Rheumatoid Arthritis (RA) Additional Family Medical History / Comment(s): Mother lived to be 83 yrs old. Medications and Allergies Home Medications Medication Instructions Recorded Confirmed Type Acetaminophen Tab [Tylenol] 500 - 1,000 mg PO Q6H PRN 01/31/21 02/22/21 History Calcium Carb-Vit D 500Mg-5Mcg 1 tab PO BID 01/31/21 02/22/21 History [Oscal 500+D 5 Mcg (200 Iu)] Cholecalciferol [Vitamin D3 (25 25 mcg PO HS 01/31/21 02/22/21 History Mcg = 1000 Iu)] Divalproex [Depakote] 250 mg PO HS 01/31/21 02/22/21 History Folic Acid 6 mg PO DAILY@1200 01/31/21 02/22/21 History Levothyroxine Sodium [Synthroid] 75 mcg PO MOTUWETHFRSA 01/31/21 02/22/21 History Multivitamins, Thera [Multivitamin 1 tab PO DAILY 01/31/21 02/22/21 History (formulary)] Omeprazole 20 mg PO BID 01/31/21 02/22/21 History Polyethylene Glycol 3350 [Miralax] 17 gm PO DAILY 01/31/21 02/22/21 History Pravastatin Sodium [Pravachol] 40 mg PO HS 01/31/21 02/22/21 History Propylene Glycol [Systane Complete] 1 drop BOTH EYES BID 01/31/21 02/22/21 History metHOTREXate sodium [Methotrexate] 10 mg PO WE@2100 01/31/21 02/22/21 History metHOTREXate sodium [Methotrexate] 12.5 mg PO WE@0800 01/31/21 02/22/21 History predniSONE [Deltasone] 20 mg PO HS 01/31/21 02/22/21 History Losartan [Cozaar] 25 mg PO DAILY 02/22/21 02/22/21 History traMADol HCl [Ultram] 50 mg PO HS PRN 02/22/21 02/22/21 History Allergies Allergy/AdvReac Type Severity Reaction Status Date / Time Penicillins Allergy Rash/Hives Verified 02/22/21 17:03 azithromycin AdvReac Abdominal Verified 02/22/21 17:03 Pain Physical Examination - Vital Signs Vital Signs: Vital Signs Temp Pulse Resp BP Pulse Ox 02/23/21 07:57 72 16 141/69 95 02/22/21 20:42 101 H 16 115/73 95 02/22/21 15:54 99.4 F 102 H 16 138/68 02/22/21 15:41 99.4 F 105 H 18 139/102 96 Intake and Output 02/22/21 02/23/21 02/23/21 22:59 06:59 14:59 Other: Weight 77.519 kg GENERAL: The patient is lying in bed and is not in acute distress. HENT: Has skull defect over the right frontal region. CHEST: The heart rate is regular rate rhythm. No murmurs to auscultation. LUNG: Clear to auscultation bilaterally no wheezing noted throughout. Not labored breathing. ABDOMEN/GI: Bowel sounds present in all 4 quadrants. No tenderness to palpation throughout. MUSCULOSKELETAL: Has significant deformity of joints of hand (from severe arthritis) NEUROLOGICAL: Higher mental function: The patient is awake, alert, oriented to self and stated she was in the hospital. She stated the month was January correctly but the year was . Patient is following simple commands. No aphasia and no neglect. Is repeating phrases correctly. Cranial nerves: The pupils are round, equal and reactive to light. Visual banks are full to confrontation throughout. Extraocular movement is intact no nystagmus is noted. Facial sensation is normal to touch throughout. The facial strength is normal throughout. Hearing is mildly to moderately decreased. Tongue is midline and moved [id number] without any difficulty. No dysarthria is noted. Shoulder shrug is normal bilaterally. Motor: Gait is deferred because of lower extremity pain. The strength is 5 over 5 throughout upper while lower is able to move above gravity without drift (but limited because of pain). Normal tone and bulk. Cerebellum: Normal finger to nose bilaterally. Sensation: Sensation is normal to touch throughout. Tender to touch in lower Reflexes (right/left):2+ in upper but patient asked me to defer from testing lowers. Results Urinalysis is negative for urinary tract infection. Weller virus patient was not detected. - Laboratory Findings CBC and BMP: 02/23/21 06:15 02/23/21 06:15 Abnormal Lab Findings: Abnormal Labs 02/22/21 02/22/21 02/22/21 15:38 15:38 15:38 MCV 101.6 H Neutrophils # Lymphocytes # 0.8 L BUN 27 H Creatinine 1.32 H Glucose 120 H POC Glucose (mg/dL) Uric Acid 8.4 H AST 37 H C-Reactive Protein Total Protein 6.2 L Triglycerides Cholesterol LDL Cholesterol, Calc 02/22/21 02/23/21 02/23/21 15:45 06:15 06:15 MCV 101.3 H Neutrophils # 8.9 H Lymphocytes # 0.7 L BUN 29 H Creatinine 1.28 H Glucose 148 H POC Glucose (mg/dL) 119 H Uric Acid AST C-Reactive Protein 8.7 H Total Protein Triglycerides 157.0 H Cholesterol 224 H LDL Cholesterol, Calc 139.6 H Assessment and Plan Assessment: 1. Transient episode of left facial droop and confusion is possibly due to seizure (especially with encephalomalacia from right frontal region) vs TIA (feel more seizure > TIA). Rule out other underlying infection (unlikely) 2. Colloid cyst status post resection about 25 years ago at [facility] 3. 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 Macrocytosis 5. Generalized weakness. 6. Severe Rheumatoid arthritis 7. Recent UTI Plan: CT of the head is reported as no acute intracranial hemorrhage or midline shift. There is moderate to severe diffuse age-related cerebral atrophy and mild to moderate chronic small vessel ischemic changes along with right frontal craniotomy change and adjacent encephalomalacia all redemonstrated. No sicca change from most recent CT. CT angiography of the head and neck was reported as no significant stenosis in the common or internal carotid artery bilaterally. No significant stenosis or a neurysm of the [place] of [place]. Lipid panel: Triglyceride is 157, cholesterol is 224, LDLs 139 and HDL is 53. I ordered MRI Brain, routine EEG and 2Decho. Because of the suspicion of a seizure especially with encephalomalacia over the right frontal region, I increased Depakote from 250mg 1 tab daily to bid. I started the patient on ASA 81mg daily.Patient was restarted on pravastatin 40mg qhs. PT, OT and TRANSPORTATION ECONOMICS TEACHER are consulted. Q4 hour neuro check and placed on continous cardiac monitoring. I ordered TSH and folate level especially with macrocytosis. Vitamin B12: 1022 (on 01/31/2021) and does not need to be repeated. Please avoid tramadol since it can lower the seizure threshold. We'll defer the rest of medical measure the primary team. Per the patient's , patient is going to follow-up with a neurologist at [facility]. I notified him that I recommend patient to have a neuropsych evaluation as outpatient for her memory. The plan is discussed with the patient's (Sivakumar) and his daughter (Puja) as well her nurse. Thank you for the consultation Lavell Castillo MD Neuro-Hospitalist Time with Patient: Greater than 30
[2021-02-23] MEDS: FOLIC ACID 1 MG TAB PO SCH (16:06)
[2021-02-23] MEDS: ASPIRIN 81 MG PO SCH (16:42)
[2021-02-23] MEDS: DIVALPROEX 250 MG TABLET.DR PO SCH (20:14)
[2021-02-23] MEDS: PRAVASTATIN SODIUM 40 MG TAB PO SCH (20:14)
[2021-02-23] MEDS: predniSONE 20 MG TAB PO SCH (20:14)
[2021-02-23] MEDS: CHOLECALCIFEROL 25 MCG (1000 IU) TABLET PO SCH (20:14)
--- NOTE | 2021-02-23 21:30 | MR ---
EXAMINATION TYPE: MR brain wo/w con DATE OF EXAM: 02/23/2021 COMPARISON: CT brain yesterday HISTORY: Left sided facial droop/mumbling. CONTRAST: Standard multiplanar, multisequence MRI departmental protocol utilizing 7 mL intravenous Gadavist jefry olinium contrast. There is diffuse cerebral atrophy. There is no mass effect nor midline shift. There is old right post erior frontal lobe encephalomalacia with apparent porencephaly with communication of the frontal horn right lateral ventricle with the right frontal convexity. This measures approximate 5 x 3 cm. There is thinning of the corpus callosum. The brainstem is intact. There is increased signal on the FLAIR i mages adjacent to the lateral ventricles. Diffusion images show no evidence of an acute infarct. Ther e is normal enhancement of the venous sinuses. I see no pathologic enhancement. There is old right fr ontal craniotomy defect. Optic chiasm appears normal. Pituitary stalk is in the midline. There is no evidence of a sellar mass . IMPRESSION: Cerebral atrophy. Old encephalomalacia and previous surgery noted at the right posterior frontal lobe . No evidence of an acute infarct. White matter signal changes around the lateral ventricles could re late to some chronic microvascular ischemia.
[2021-02-24 00:46] LABS: Folate, Serum >24.0 ng/mL
[2021-02-24] MEDS: LEVOTHYROXINE 75 MCG TAB PO SCH (06:34)
[2021-02-24] MEDS: PANTOPRAZOLE 40 MG TABLET PO SCH (06:34)
[2021-02-24] MEDS: ASPIRIN 81 MG PO SCH (09:04)
[2021-02-24] MEDS: MULTIVITAMINS, THERA 1 EACH TAB PO SCH (09:04)
[2021-02-24] MEDS: LOSARTAN 25 MG TAB PO SCH (09:05)
[2021-02-24] MEDS: ARTIFICIAL TEARS-HYPROMELLOSE DROPS 15 ML BTL BOTH EYES SCH ×2 (09:05→19:51)
[2021-02-24] MEDS: CALCIUM CARB-VIT D 500 MG-5 MCG TAB PO SCH ×2 (09:05→19:52)
[2021-02-24] MEDS: DIVALPROEX 250 MG TABLET.DR PO SCH ×2 (09:05→19:52)
[2021-02-24] MEDS: HEPARIN SODIUM,PORCINE/PF 5,000 UNIT/0.5 ML SYRINGE SQ SCH ×2 (09:05→19:52)
[2021-02-24] MEDS: polyethylene glycoL 3350 17 GM POWD.PACK PO SCH (09:05)
[2021-02-24] MEDS: FOLIC ACID 1 MG TAB PO SCH (12:15)
--- NOTE | 2021-02-24 15:59 | ECHOF ---
Referral Reason:stroke MEASUREMENTS -------- HEIGHT: 160.0 cm WEIGHT: 77.1 kg BP: 112/60 IVSd: 1.4 cm (0.6 - 1.1) LVIDd: 3.3 cm (3.9 - 5.3) LVPWd: 1.4 cm (0.6 - 1.1) EDV(Teich): 44 ml IVSs: 1.9 cm LVIDs: 2.5 cm LVPWs: 1.7 cm %IVS Thck: 42 % ESV(Teich): 21 ml EF(Teich): 52 % %FS: 26 % SV(Teich): 23 ml LA Diam: 3.5 cm (2.7 - 3.8) RVIDd: 2.6 cm (< 3.3) Ao Diam: 3.0 cm (2.0 - 3.7) AV Cusp: 2.1 cm (1.5 - 2.6) MV E [place]: 0.57 m/s MV DecT: 217 ms MV Dec [place]: 2.6 m/s MV A [place]: 0.79 m/s MV E/A Ratio: 0.72 MV PHT: 63 ms AV Vmax: 1.25 m/s AV maxP.24 mmHg FINDINGS -------- Sinus rhythm. This was a technically difficult study with suboptimal views. The left ventricular size is normal. There is moderate concentric left ventricular hypertrophy. O verall left ventricular systolic function is normal with, an EF between 60 - 65 %. The right ventricle is normal in size. The global wall thickness of the right ventricle is moderate ly enlarged. The left atrium is normal in size. The right atrium is normal in size. 5 ml of Lumason was utilized for enhancement of images. There is mild aortic valve sclerosis. Mild mitral annular calcification present. The tricuspid valve was not well visualized. The pulmonic valve was not well visualized. The aortic root size is normal. IVC Not well visulized. Echo free space indicative of a pericardial fat pad. There is no pericardial effusion. CONCLUSIONS -------- 1. This was a technically difficult study with suboptimal views. 2. The left ventricular size is normal. 3. There is moderate concentric left ventricular hypertrophy. 4. Overall left ventricular systolic function is normal with, an EF between 60 - 65 %. 5. The global wall thickness of the right ventricle is moderately enlarged. 6. 5 ml of Lumason was utilized for enhancement of images. 7. There is mild aortic valve sclerosis. 8. Mild mitral annular calcification present. 9. Echo free space indicative of a pericardial fat pad. 10. There is no pericardial effusion. ADULT SCHOOL TEACHER: Vanessa Delvalle RDCS
--- NOTE | 2021-02-24 16:05 | P.PN ---
Subjective Progress Note Date: 02/24/21 Patient was seen at bedside upon speaking the with patient's via phone, he stated the patient has been improving today compared to yesterday. He stated that she is walking with a walker and doing better. No further facial asymmetry. He feels she is still not back to baseline. He denies any worsening of her neurological condition. Objective - Vital Signs Vital signs: Vital Signs Temp 97.8 F 02/24/21 12:20 Pulse 85 02/24/21 12:20 Resp 18 02/24/21 12:20 BP 110/72 02/24/21 12:20 Pulse Ox 96 02/24/21 12:20 Intake & Output 02/23/21 02/24/21 02/24/21 18:59 06:59 18:59 Intake Total 240 Output Total 400 1275 Balance -400 -1275 240 Weight 72 kg Intake: Oral 240 Output: Urine 400 1275 Uretheral (Goldstein) 400 Other: Voiding Method Indwelling Catheter Indwelling Catheter # Voids 1 # Bowel Movements 1 - Exam GENERAL: The patient is lying in bed and is not in acute distress. HENT: Has skull defect over the right frontal region. MUSCULOSKELETAL: Has significant deformity of joints of hand (from severe arthritis) NEUROLOGICAL: Higher mental function: The patient is awake, alert, oriented to self and stated she was in the hospital. She stated the month was January correctly but the year was . Patient is following simple commands. No aphasia and no neglect. Is repeating phrases correctly. Cranial nerves: The pupils are round, equal and reactive to light. Visual banks are full to confrontation throughout. Extraocular movement is intact no nystagmus is noted. Facial sensation is normal to touch throughout. The facial strength is normal throughout. Hearing is mildly to moderately decreased. Tongue is midline and moved [id number] without any difficulty. No dysarthria is noted. Shoulder shrug is normal bilaterally. Motor: Gait is deferred because of lower extremity pain. The strength is 5 over 5 throughout upper while lower is able to move above gravity without drift (but limited because of pain). Normal tone and bulk. Has some resting tremor of the right foot but with action it stopped and with command of telling her to stop it she would. Cerebellum: Normal finger to nose bilaterally. Sensation: Sensation is normal to touch throughout. Tender to touch in lower Reflexes (right/left):2+ in upper but patient asked me to defer from testing lowers. - Labs CBC & Chem 7: 02/23/21 06:15 02/23/21 06:15 Labs: Microbiology - Last 24 Hours (Table) 02/22/21 18:12 Blood Culture - Preliminary Blood No Growth after 24 hours 02/22/21 18:18 Blood Culture - Preliminary Blood No Growth after 24 hours Assessment and Plan Assessment: 1. Transient episode of left facial droop and confusion is possibly due to seizure (especially with encephalomalacia from right frontal region) vs TIA (feel more seizure > TIA). Rule out other underlying infection (unlikely) 2. Colloid cyst status post resection about 25 years ago at [facility] 3. 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 Generalized weakness---improving per the patient's 5. Severe Rheumatoid arthritis 6. Recent UTI Plan: * CT of the head is reported as no acute intracranial hemorrhage or midline shift. There is moderate to severe diffuse age-related cerebral atrophy and mild to moderate chronic small vessel ischemic changes along with right frontal craniotomy change and adjacent encephalomalacia all redemonstrated. No sicca change from most recent CT. * CT angiography of the head and neck was reported as no significant stenosis in the common or internal carotid artery bilaterally. No significant stenosis or aneurysm of the algaaciq of [place]. * Lipid panel: Triglyceride is 157, cholesterol is 224, LDLs 139 and HDL is 53. * MRI of the brain is reported as cerebral atrophy. Old encephalomalacia and previous surgery noted over the right posterior frontal lobe. No evidence of acute infarct. White matter signal change around the lateral ventricle could correlate to some chronic small vessel ischemia. * TSH: 2.68 (normal). Serum folate level >24.0 (normal). Vitamin B12: 1022 (on 01/31/2021) and does not need to be repeated. * Routine EEG and 2Decho ARE PENDING. * Because of the suspicion of a seizure especially with encephalomalacia over the right frontal region which can cause cortical irritability: Continue Depakote 250mg 1 tab daily to bid (prior was on Depakote 250mg daily for her mood disorder). * Cotninue ASA 81mg daily and pravastatin 40mg qhs for secondary stroke prophylaxis. * PT, OT and [facility] are consulted. * Q4 hour neuro checks * On continous cardiac monitoring. * Please avoid tramadol since it can lower the seizure threshold. * We'll defer the rest of medical measure the primary team. * Per the patient's , patient is going to follow-up with a neurologist at [facility]. I notified him that I recommend patient to have a neuropsych evaluation as outpatient for her memory. The plan is discussed with the patient's (Sivakumar) via phone and her nurse. Will follow-up with the patient sporadically. Lavell Castillo MD Neuro-Hospitalist Time with Patient: Less than 30
[2021-02-24] MEDS: SODIUM CHLORIDE 0.9% 1,000 ML IV SCH ×2 (19:43→19:49)
[2021-02-24] MEDS: ATORVASTATIN 20 MG TAB PO SCH (19:51)
--- NOTE | 2021-02-24 19:51 | PN ---
PROGRESS NOTE DATE OF SERVICE: 02/24/2021 This 75-year-old woman who was admitted with weakness is being closely monitored at this time. ECF rehab is being planned. PT/OT evaluated the patient closely. MRI showed severe atrophy and old encephalomalacia and previous surgery in the right posterior frontal lobe. No evidence of acute infarct has been noted. No chest pain. No palpitations. No fever. PHYSICAL EXAMINATION: Alert and oriented x2. Pulse 82, blood pressure 105/60, respirations 16, temperature 97.8, pulse ox 97% on room air. HEENT: Conjunctivae normal. Oral mucosa moist. NECK: No jugular venous distention. No lymph node enlargement. CARDIOVASCULAR: S1, S2, muffled. No S3, no S4, RESPIRATORY: Diminished breath sounds at the bases. ABDOMEN: Soft, nontender. NERVOUS SYSTEM: Diffusely weak. Contractures also present. LABS: MCV 101.3. Creatinine is 1.28. Cholesterol is elevated. ASSESSMENT: 1. Weakness with left facial droop, suspected possible acute stroke or TIA involving the right hemisphere. 2. Old encephalomalacia and previous surgery in the right posterior frontal lobe in the MRI scan. 3. Hyperlipidemia. 4. Increased creatinine with acute renal failure with prerenal acute renal failure and acute tubular necrosis. 5. Increased MCV. 6. Hypertension. 7. Hyperlipidemia. 8. History of rheumatoid arthritis with contractures. 9. Hypothyroidism. 10.Chronic pain syndrome. 11.Bilateral leg pain. 12.Gait dysfunction. 13.History of UTI. 14.History of urinary incontinence. 15.History of constipation. 16.History of DJD. 17.History of bipolar. RECOMMENDATIONS AND DISCUSSION: Recommend to continue current management, continue symptomatic treatment. PT/OT evaluation, possible ECF rehab. Continue with antiplatelet agents. I would add Lipitor to the regimen also. Prognosis guarded. Further recommendations to follow. MMODL / IJN: [id number] /
[2021-02-24] MEDS: predniSONE 20 MG TAB PO SCH (19:52)
[2021-02-24] MEDS: CHOLECALCIFEROL 25 MCG (1000 IU) TABLET PO SCH (19:52)
[2021-02-25] MEDS: PANTOPRAZOLE 40 MG TABLET PO SCH (06:34)
[2021-02-25] MEDS: SODIUM CHLORIDE 0.9% 1,000 ML IV SCH ×2 (06:34→20:22)
[2021-02-25] MEDS: MULTIVITAMINS, THERA 1 EACH TAB PO SCH (09:29)
[2021-02-25] MEDS: HEPARIN SODIUM,PORCINE/PF 5,000 UNIT/0.5 ML SYRINGE SQ SCH ×2 (09:29→20:20)
[2021-02-25] MEDS: CALCIUM CARB-VIT D 500 MG-5 MCG TAB PO SCH ×2 (09:29→20:20)
[2021-02-25] MEDS: ASPIRIN 81 MG PO SCH (09:29)
[2021-02-25] MEDS: DIVALPROEX 250 MG TABLET.DR PO SCH ×2 (09:29→20:20)
[2021-02-25] MEDS: FOLIC ACID 1 MG TAB PO SCH (09:29)
[2021-02-25] MEDS: LOSARTAN 25 MG TAB PO SCH (09:29)
[2021-02-25] MEDS: polyethylene glycoL 3350 17 GM POWD.PACK PO SCH (09:30)
[2021-02-25 13:42] VITALS: BMI 28.3
[2021-02-25] MEDS: ARTIFICIAL TEARS-HYPROMELLOSE DROPS 15 ML BTL BOTH EYES SCH ×2 (17:08→20:20)
--- NOTE | 2021-02-25 18:20 | PN ---
PROGRESS NOTE DATE OF SERVICE: 02/25/2021 This 75-year-old woman who was admitted with weakness and left facial droop was thought to be acute stroke or transient ischemic attack involving the right hemisphere. The patient had old encephalomalacia. The patient being closely monitored. Brain MRI has been reviewed. PT/OT evaluating the patient for ECF rehab. No chest pain. No palpitations. No fever. PHYSICAL EXAMINATION: Alert and oriented x2. Pulse 90, blood pressure 109/74, respiration 18, temperature 98.1, pulse ox 98% on room air. HEENT: Conjunctive normal. NECK: No JVD. CARDIOVASCULAR: S1, S2 muffled. RESPIRATIONS: Breath sounds diminished in the bases. No rhonchi. ABDOMEN: Soft. NERVOUS SYSTEM: Diffusely weak. Some contractures also present. LABS: WBC 9.9, MCV 101, creatinine is 1.28 and cholesterol is 224. ASSESSMENT: 1. Weakness of the left facial droop, possibly acute stroke or transient ischemic attack involving the right hemisphere. 2. Old encephalomalacia and previous surgery on the right posterior frontal lobe in the MRI scan. 3. Hyperlipidemia. 4. Increased creatinine with acute renal failure with possible prerenal acute renal failure and acute tubular necrosis, present on admission. 5. Increased MCV. 6. Hypertension. 7. Hyperlipidemia. 8. History of rheumatoid arthritis with contractures. 9. Hypothyroidism. 10.Chronic pain syndrome. 11.Bilateral leg pain. 12.Gait dysfunction. 13.Urinary tract infection. 14.History of urinary incontinence. 15.History of constipation. 16.History of degenerative joint disease. 17.History of bipolar. RECOMMENDATIONS AND DISCUSSION: I recommend to continue current medications, management and symptomatic treatment. Continue with antiplatelet agents. Continue with Lipitor. PT/OT evaluation, possible ECF rehab. Prognosis guarded because of multiple complex medical issues. Further recommendations to follow. MMODL / IJN: [id number] /
[2021-02-25] MEDS: ATORVASTATIN 20 MG TAB PO SCH (20:20)
[2021-02-25] MEDS: predniSONE 20 MG TAB PO SCH (20:20)
[2021-02-25] MEDS: CHOLECALCIFEROL 25 MCG (1000 IU) TABLET PO SCH (20:20)
[2021-02-26] MEDS: SODIUM CHLORIDE 0.9% 1,000 ML IV SCH ×3 (03:53→23:14)
[2021-02-26] MEDS: PANTOPRAZOLE 40 MG TABLET PO SCH (06:44)
[2021-02-26] MEDS: LEVOTHYROXINE 75 MCG TAB PO SCH (06:44)
[2021-02-26 08:10] LABS: Basophils % (A) 0 %; Eosinophils % (A) 0 %; HCT 36.9 % (34.0-46.0); Lymphocytes # (A) 0.8 k/uL (1.0-4.8); Lymphocytes % (A) 16 %; MCH 33.3 pg (25.0-35.0); MCHC 32.5 g/dL (31.0-37.0); MCV 102.3 fL (80.0-100.0); Macrocytosis Slight; Mean Platelet Volume 8.2; Monocytes # (A) 0.2 k/uL (0-1.0); Monocytes % (A) 3 %; Neutrophils # (A) 3.9 k/uL (1.3-7.7); Neutrophils % (A) 80 %; Platelet Count 198 k/uL (150-450); RBC 3.61 m/uL (3.80-5.40); WBC 4.9 k/uL (3.8-10.6)
[2021-02-26 08:24] LABS: Calcium 8.9 mg/dL (8.4-10.2); Potassium 4.9 mmol/L (3.5-5.1)
[2021-02-26] MEDS: MULTIVITAMINS, THERA 1 EACH TAB PO SCH (09:47)
[2021-02-26] MEDS: CALCIUM CARB-VIT D 500 MG-5 MCG TAB PO SCH ×2 (09:47→19:53)
[2021-02-26] MEDS: LOSARTAN 25 MG TAB PO SCH (09:47)
[2021-02-26] MEDS: ASPIRIN 81 MG PO SCH (09:47)
[2021-02-26] MEDS: FOLIC ACID 1 MG TAB PO SCH (09:47)
[2021-02-26] MEDS: HEPARIN SODIUM,PORCINE/PF 5,000 UNIT/0.5 ML SYRINGE SQ SCH ×2 (09:48→19:53)
[2021-02-26] MEDS: ARTIFICIAL TEARS-HYPROMELLOSE DROPS 15 ML BTL BOTH EYES SCH ×2 (09:48→19:54)
[2021-02-26] MEDS: polyethylene glycoL 3350 17 GM POWD.PACK PO SCH (09:48)
[2021-02-26] MEDS: DIVALPROEX 250 MG TABLET.DR PO SCH ×2 (09:48→19:53)
--- NOTE | 2021-02-26 16:33 | PN ---
PROGRESS NOTE DATE OF SERVICE: 02/26/2021 INTERVAL HISTORY: This is a 75-year-old woman who was admitted with weakness of the left facial droop, had possible acute transient ischemic attack involving the right hemisphere. Patient also had old encephalomalacia, multiple changes in the CT scan size and possible old stroke as well. The patient had significant difficulty at home in transferring and her is also having significant difficulties in dealing with the situation home. PAST MEDICAL HISTORY: Reviewed. REVIEW OF SYSTEMS: CARDIOVASCULAR: No angina. RESPIRATORY: As mentioned earlier. GI: As mentioned earlier. NERVOUS SYSTEM: As mentioned earlier. CURRENT MEDICATIONS: Reviewed include Tylenol, [place], Xanax, Artificial Tears, aspirin, Lipitor, [place]. Doses reviewed. PHYSICAL EXAM: GENERAL: Patient is alert and oriented times three. VITAL SIGNS: Pulse 74, blood pressure 111/73, respirations 16, temperature 98.3, pulse ox 98% on room air. HEENT: Conjunctivae normal. Oral mucosa moist. NECK: No jugular venous distention. No carotid bruits. RESPIRATORY: Breath sounds diminished at the bases. A few scattered rhonchi and crackles. HEART: S1 and S2, muffled. ABDOMEN: Soft, no tenderness. EXTREMITIES: No edema, no swelling. NERVOUS: Diffusely weak. LABS: At this time WBC 4.2, hemoglobin is 12, sodium 140, potassium 4.9 creatinine is 1.09. ASSESSMENT: 1. Weakness of the left facial droop with possible acute transient ischemic attack involving the right hemisphere. 2. Old encephalomalacia as well as previous surgery on the right posterior frontal lobe in the MRI scan. 3. Hyperlipidemia. 4. Severe gait dysfunction. 5. High risk of falls. 6. Increased creatinine with acute renal failure with possible acute prerenal acute tubular necrosis present on admission. 7. Increased MCV. 8. Hypertension. 9. Hyperlipidemia. 10.History rheumatoid arthritis with contractures. 11.Hypothyroidism. 12.Chronic pain syndrome. 13.Bilateral leg pain. 14.Urinary tract infection history. 15.History of urinary incontinence. 16.History of constipation. 17.History of DJD. 18.History of bipolar. 19.FULL CODE. RECOMMENDATION AND DISCUSSION: In this 75-year-old woman who presented with multiple complex medical issues, we will monitor the patient closely. Continue the current management and symptomatic treatment. Patient has significant gait difficulties. At this time, the patient has multiple complex medical issues. At this time I recommend possible ECF rehab. The patient also had multiple social issues also. I would also recommend discussion with the family and possibly consider [facility] home also as a long-term choice. Prognosis guarded because of multiple complex medical issues. Further recommendations to follow. Repeat labs are ordered. MMODL / IJN: [id number] /
[2021-02-26] MEDS: predniSONE 20 MG TAB PO SCH (19:53)
[2021-02-26] MEDS: ATORVASTATIN 20 MG TAB PO SCH (19:53)
[2021-02-26] MEDS: CHOLECALCIFEROL 25 MCG (1000 IU) TABLET PO SCH (19:53)
[2021-02-27] MEDS: LEVOTHYROXINE 75 MCG TAB PO SCH (06:10)
[2021-02-27] MEDS: SODIUM CHLORIDE 0.9% 1,000 ML IV SCH ×2 (06:10→14:56)
[2021-02-27] MEDS: PANTOPRAZOLE 40 MG TABLET PO SCH (06:10)
[2021-02-27] MEDS: ARTIFICIAL TEARS-HYPROMELLOSE DROPS 15 ML BTL BOTH EYES SCH ×2 (07:59→22:40)
[2021-02-27] MEDS: ASPIRIN 81 MG PO SCH (07:59)
[2021-02-27] MEDS: FOLIC ACID 1 MG TAB PO SCH (07:59)
[2021-02-27] MEDS: HEPARIN SODIUM,PORCINE/PF 5,000 UNIT/0.5 ML SYRINGE SQ SCH ×2 (08:00→20:27)
[2021-02-27] MEDS: LOSARTAN 25 MG TAB PO SCH (08:00)
[2021-02-27] MEDS: CALCIUM CARB-VIT D 500 MG-5 MCG TAB PO SCH ×2 (08:00→20:27)
[2021-02-27] MEDS: DIVALPROEX 250 MG TABLET.DR PO SCH ×2 (08:00→22:40)
[2021-02-27] MEDS: MULTIVITAMINS, THERA 1 EACH TAB PO SCH (08:00)
[2021-02-27] MEDS: polyethylene glycoL 3350 17 GM POWD.PACK PO SCH (08:01)
[2021-02-27 08:39] LABS: Basophils % (A) 0 %; Eosinophils % (A) 0 %; HCT 37.3 % (34.0-46.0); HGB 12.2 gm/dL (11.4-16.0); Lymphocytes # (A) 0.5 k/uL (1.0-4.8); Lymphocytes % (A) 12 %; MCH 33.5 pg (25.0-35.0); MCHC 32.6 g/dL (31.0-37.0); MCV 102.8 fL (80.0-100.0); Macrocytosis Slight; Mean Platelet Volume 7.8; Monocytes # (A) 0.1 k/uL (0-1.0); Monocytes % (A) 3 %; Neutrophils # (A) 3.7 k/uL (1.3-7.7); Neutrophils % (A) 84 %; Platelet Count 164 k/uL (150-450); RBC 3.63 m/uL (3.80-5.40); RDW 15.4 % (11.5-15.5); WBC 4.4 k/uL (3.8-10.6)
[2021-02-27 08:58] LABS: Potassium 3.8 mmol/L (3.5-5.1)
--- NOTE | 2021-02-27 15:30 | EEG ---
ELECTROENCEPHALOGRAM REPORT DATE OF SERVICE: 02/27/2021. PREAMBLE: This is a 75-year-old female who has presented with transient episode of left facial droop, and confusion, possibly due to seizure. The patient does have history of colloid cyst removal about 25 years ago at [facility]. This study is performed to evaluate for any epileptiform activity. EEG FINDINGS: This is a 21 channel routine EEG recording in a patient utilizing 10/20 international system with referential and bipolar montages. The background consists of a well- developed, but poorly regulated, mixed frequencies of 4-6 hertz theta with some [id number] amplitude delta activity. Some of the fast frequency activity was seen in the bilateral posterior temporal region. Different stages of sleep were not seen. Photic driving response was not seen. No focal or generalized epileptiform activity was seen. IMPRESSION: This is an abnormal EEG due to background slowing and disorganization of mild to moderate degree. This is suggestive of generalized cerebral dysfunction as can be seen with toxic metabolic encephalopathy or due to diffuse structural brain abnormality. No epileptiform activity was seen. MMODL / IJN: [id number] / MTDD
--- NOTE | 2021-02-27 16:34 | P.PN ---
Subjective Progress Note Date: 02/27/21 This is a 75-year-old woman who was recently admitted with weakness of the left along with facial droop and had possible acute transient ischemic attack involving the right hemisphere and is being closely monitored. Patient also was found to have old encephalomalacia along with multiple changes on the computed tomography scan and possible old stroke as well. Neurology is following closely. Patient has significant difficulty in the home requiring maximum assistance and inability to be cared for properly by her and will require ECF placement for continued strength and mobility. PT/OT following. Patient underwent EEG today showing no epileptiform activity noted although an abnormal EEG due to background slowing and disorganization of moderate degree which is suggestive of generalized cerebral dysfunction and can be seen in those with toxic metabolic encephalopathy or diffuse structural brain abnormalities. Hemoglobin today is 12.2, sodium is 141 with a potassium 3.8 current creatinine 1.08 and blood sugars are being monitored. Patient is maintained on aspirin along with Lipitor and will continue at this time. Patient also continues on Depakote and will continue. Review of systems: Constitutional: No reports of fatigue, fever, or chills Cardiovascular: No reports of chest pain or palpitations Respiratory: No reports of shortness of breath or cough GI: No reports of nausea, vomiting, or diarrhea : No reports of dysuria or retention Neurovascular: Reports generalized weakness All medications have been reviewed Active Medications Acetaminophen (Acetaminophen Tab 500 Mg Tab) 500 - 1,000 mg PO Q6H PRN PRN Reason: Pain Last Admin: 02/22/21 22:01 Dose: 1,000 mg Documented by: Hydrocodone Bitart/Acetaminophen (Hydrocodone/Apap 5-325mg 1 Each Tab) 1 each PO Q6HR PRN PRN Reason: Pain Alprazolam (Alprazolam 0.25 Mg Tab) 0.25 mg PO TID PRN PRN Reason: Anxiety Artificial Tears (Artificial Tears-Hypromellose Drops 15 Ml Btl) 1 drops BOTH EYES BID [facility] Last Admin: 02/27/21 07:59 Dose: Not Given Documented by: Aspirin (Aspirin 81 Mg) 81 mg PO DAILY [facility] Last Admin: 02/27/21 07:59 Dose: 81 mg Documented by: Atorvastatin Calcium (Atorvastatin 20 Mg Tab) 20 mg PO HS [facility] Last Admin: 02/26/21 19:53 Dose: 20 mg Documented by: Calcium Carbonate (Calcium Carb-Vit D 500 Mg-5 Mcg Tab) 1 each PO BID [facility] Last Admin: 02/27/21 08:00 Dose: 1 each Documented by: Cholecalciferol (Cholecalciferol 25 Mcg (1000 Iu) Tablet) 25 mcg PO HS [facility] Last Admin: 02/26/21 19:53 Dose: 25 mcg Documented by: Divalproex Sodium (Divalproex 250 Mg Tablet.Dr) 250 mg PO BID [facility] Last Admin: 02/27/21 08:00 Dose: 250 mg Documented by: Folic Acid (Folic Acid 1 Mg Tab) 6 mg PO DAILY@1200 [facility] Last Admin: 02/27/21 07:59 Dose: 6 mg Documented by: Heparin Sodium (Porcine) (Heparin Sodium,Porcine/Pf 5,000 Unit/0.5 Ml Syringe) 5,000 unit SQ Q12HR [facility] Last Admin: 02/27/21 08:00 Dose: Not Given Documented by: Sodium Chloride (Saline 0.9%) 1,000 mls @ 100 mls/hr IV .Q10H [facility] Last Admin: 02/27/21 14:56 Dose: Not Given Documented by: Levothyroxine Sodium (Levothyroxine 75 Mcg Tab) 75 mcg PO MOTUWETHFRSA [facility] Last Admin: 02/27/21 06:10 Dose: 75 mcg Documented by: Losartan Potassium (Losartan 25 Mg Tab) 25 mg PO DAILY [facility] Last Admin: 02/27/21 08:00 Dose: 25 mg Documented by: Methotrexate (Methotrexate Sodium 2.5 Mg Tab) 12.5 mg PO WE@0800 [facility] Methotrexate (Methotrexate Sodium 2.5 Mg Tab) 10 mg PO WE@2100 [facility] Multivitamins (Multivitamins, Thera 1 Each Tab) 1 each PO DAILY [facility] Last Admin: 02/27/21 08:00 Dose: 1 each Documented by: Pantoprazole Sodium (Pantoprazole 40 Mg Tablet) 40 mg PO DAILY@0730 [facility] Last Admin: 02/27/21 06:10 Dose: 40 mg Documented by: Polyethylene Glycol (Polyethylene Glycol 3350 17 Gm Powd.Pack) 17 gm PO DAILY [facility] Last Admin: 02/27/21 08:01 Dose: Not Given Documented by: Prednisone (Prednisone 20 Mg Tab) 20 mg PO [facility] Last Admin: 02/26/21 19:53 Dose: 20 mg Documented by: Tramadol HCl (Tramadol 50 Mg Tab) 50 mg PO HS PRN PRN Reason: Pain Objective - Vital Signs Vital signs: Vital Signs Temp 98 F 02/27/21 15:51 Pulse 85 02/27/21 15:51 Resp 18 02/27/21 15:51 BP 120/70 02/27/21 15:51 Pulse Ox 99 02/27/21 15:51 Intake & Output 02/26/21 02/27/21 02/27/21 18:59 06:59 18:59 Intake Total 2020 1100 280 Output Total 750 1725 850 Balance 3360 -114 -570 Weight 73 kg Intake: Intake, IV Titration 700 1000 Amount Sodium Chloride 0.9% 1, 700 1000 000 ml @ 100 mls/hr IV . Q10H YARIEL Rx#:[id number] Oral 1320 100 280 Output: Urine 750 1725 850 Other: Voiding Method Indwelling Catheter Indwelling Catheter Indwelling Catheter # Bowel Movements 1 - Exam Gen: This is a 75-year-old female awake, alert and oriented 3, well-developed, well-nourished. Temp is 97.5F Pulse is 84, respirations are 18, blood pressure is 119/80, oxygen saturation is 100% on room air. HEENT: Head is atraumatic, normocephalic. Pupils equal, round. Sclerae is anicteric. NECK: Supple. No JVD. No lymphadenopathy. No thyromegaly. LUNGS: Diminished breath sounds bilaterally with some scattered rhonchi noted. No intercostal retractions. HEART: S1, S2 are muffled ABDOMEN: Soft. Obese, Bowel sounds are present. No masses. No tenderness. EXTREMITIES: No pedal edema. No calf tenderness. NEUROLOGICAL: Patient is awake, alert and oriented x3. Diffusely weak. - Labs CBC & Chem 7: 02/27/21 08:11 02/27/21 08:11 Labs: Abnormal Lab Results - Last 24 Hours (Table) 02/23/21 02/27/21 02/27/21 Range/Units 06:15 08:11 08:11 RBC 3.63 L (3.80-5.40) m/uL MCV 102.8 H (80.0-100.0) fL Lymphocytes # 0.5 L (1.0-4.8) k/uL Chloride 110 H (98-107) mmol/L Creatinine 1.08 H (0.52-1.04) mg/dL Glucose 139 H (74-99) mg/dL RBC Folate 866 H (280 - 791) ng/mL Microbiology - Last 24 Hours (Table) 02/22/21 18:12 Blood Culture - Preliminary Blood No Growth after 96 hours 02/22/21 18:18 Blood Culture - Preliminary Blood No Growth after 96 hours Assessment and Plan Assessment: Weakness and left facial droop with possible acute transient ischemic attack involving the right hemisphere Old encephalomalacia as well as previous surgery in the right posterior frontal lobe and MRI scan Gait dysfunction Increased creatinine with acute renal failure with possible acute prerenal acute tubular necrosis, present on admission Increased MCV hypertension Hyperlipidemia History of rheumatoid arthritis with contractures hypothyroidism Chronic pain syndrome Bilateral leg pain Severe gait dysfunction High risk of falls history of urinary tract infection History of urinary incontinence History of constipation history of degenerative joint disease history of bipolar Full code Recommendations and discussion: Recommend to continue with current medications, management, and symptomatic treatment. PT/OT following the patient. Continue with neuro checks. Neurology following as well and patient underwent an EEG as mentioned previously. Per nursing staff patient lost IV access and is refusing any further IVs and will continue with by mouth medications. Per nursing staff patient was able to eat all of her meal today and tolerated with no difficulties. Case management and social work following to work on placement in safe discharge planning as the is unable to care for her in the home. Plan is for [facility]. Will repeat a.m. labs and continue to monitor closely. Due to multiple complex medical issues, prognosis is guarded. Further recommendations to follow. Possible discharge in 24-48 hours.
[2021-02-27] MEDS: predniSONE 20 MG TAB PO SCH (20:27)
[2021-02-27] MEDS: CHOLECALCIFEROL 25 MCG (1000 IU) TABLET PO SCH (20:27)
--- NOTE | 2021-02-27 20:32 | P.PN ---
Subjective Progress Note Date: 02/27/21 Patient was initially seen by Dr. Lavell Castillo. Please refer to his note for details. Patient was seen for a follow-up. Patient's was also present. Patient is laying comfortably in the bed. Patient has presented with a facial droop. The facial droop has not resolved. Patient denies headache or any focal symptoms at this time. Patient has history of colloid cyst removal. Patient is also on Depakote 250 mg twice a day for mood stabilization. Objective - Vital Signs Vital signs: Vital Signs Temp 98 F 02/27/21 15:51 Pulse 85 02/27/21 15:51 Resp 18 02/27/21 15:51 BP 120/70 02/27/21 15:51 Pulse Ox 99 02/27/21 15:51 Intake & Output 02/26/21 02/27/21 02/27/21 18:59 06:59 18:59 Intake Total 2020 1100 280 Output Total 750 1725 850 Balance 6792 -591 -984 Weight 73 kg Intake: Intake, IV Titration 700 1000 Amount Sodium Chloride 0.9% 1, 700 1000 000 ml @ 100 mls/hr IV . Q10H YARIEL Rx#:[id number] Oral 1320 100 280 Output: Urine 750 1725 850 Other: Voiding Method Indwelling Catheter Indwelling Catheter Indwelling Catheter # Bowel Movements 1 - Exam GENERAL: The patient is lying in bed and is not in acute distress. HENT: Has skull defect over the right frontal region. MUSCULOSKELETAL: Has significant deformity of joints of hand (from severe arthritis) NEUROLOGICAL: Higher mental function: The patient is awake, alert, oriented to self and stated she was in the hospital. Patient is following simple commands. No aphasia and no neglect. Is repeating phrases correctly. Cranial nerves: The pupils are round, equal and reactive to light. Visual banks are full to confrontation throughout. Extraocular movement is intact no nystagmus is noted. Facial sensation is normal to touch throughout. The facial strength is normal throughout. Hearing is mildly to moderately decreased. Tongue is midline and moved [id number] without any difficulty. No dysarthria is noted. Shoulder shrug is normal bilaterally. Motor: Gait is deferred because of lower extremity pain. The strength is 5 over 5 throughout upper while lower is able to move above gravity without drift (but limited because of pain). Normal tone and bulk. Has some resting tremor of the right foot but with action it stopped and with command of telling her to stop it she would. Cerebellum: Normal finger to nose bilaterally. Sensation: Sensation is normal to touch throughout. Tender to touch in lower Reflexes (right/left):2+ in upper but patient asked me to defer from testing lowers. - Labs CBC & Chem 7: 02/27/21 08:11 02/27/21 08:11 Labs: Abnormal Lab Results - Last 24 Hours (Table) 02/23/21 02/27/21 02/27/21 Range/Units 06:15 08:11 08:11 RBC 3.63 L (3.80-5.40) m/uL MCV 102.8 H (80.0-100.0) fL Lymphocytes # 0.5 L (1.0-4.8) k/uL Chloride 110 H (98-107) mmol/L Creatinine 1.08 H (0.52-1.04) mg/dL Glucose 139 H (74-99) mg/dL RBC Folate 866 H (280 - 791) ng/mL Microbiology - Last 24 Hours (Table) 02/22/21 18:12 Blood Culture - Preliminary Blood No Growth after 96 hours 02/22/21 18:18 Blood Culture - Preliminary Blood No Growth after 96 hours Assessment and Plan Assessment: 1. Transient episode of left facial droop and confusion is possibly due to seizure (especially with encephalomalacia from right frontal region) vs TIA (feel more seizure > TIA). Rule out other underlying infection (unlikely) 2. Colloid cyst status post resection about 25 years ago at [facility] 3. 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 Generalized weakness---improving per the patient's 5. Severe Rheumatoid arthritis 6. Recent UTI Plan: * CT angiography of the head and neck was reported as no significant stenosis in the common or internal carotid artery bilaterally. No significant stenosis or aneurysm of the [place]. * Lipid panel: Triglyceride is 157, cholesterol is 224, LDLs 139 and HDL is 53. Increase Lipitor from 10 to 40 mg daily. * MRI of the brain is reported as cerebral atrophy. Old encephalomalacia and previous surgery noted over the right posterior frontal lobe. No evidence of acute infarct. White matter signal change around the lateral ventricle could correlate to some chronic small vessel ischemia. * TSH: 2.68 (normal). Serum folate level >24.0 (normal). Vitamin B12: 1022 (on 01/31/2021) and does not need to be repeated. * EEG performed today was abnormal due to background slowing and disorganization of at least moderate degree. This is suggestive of generalized cerebral dysfunction as can be seen with toxic metabolic encephalopathy or due to diffuse structural brain abnormality. No epileptiform activity was seen. * 2-D Echo showed normal left-ventricular size. Moderate concentric LVH. EF is 60-65%. Global wall thickness of the right ventricle is moderately enlarged. Mild aortic valve sclerosis.. * Because of the suspicion of a seizure especially with encephalomalacia over the right frontal region which can cause cortical irritability: Continue Depakote 250mg 1 tab daily to bid (prior was on Depakote 250mg daily for her mood disorder). * Cotninue ASA 81mg daily and Lipitor 40 mg. * PT, OT and PHARMACY CLINICAL SPECIALIST are consulted. * Per the patient's , patient is going to follow-up with a neurologist at [facility]. * Neurologically clear.
[2021-02-27] MEDS ORDERED: ATORVASTATIN 40 MG TAB PO SCH (21:00)
[2021-02-28] MEDS: LEVOTHYROXINE 75 MCG TAB PO SCH (06:48)
[2021-02-28] MEDS: PANTOPRAZOLE 40 MG TABLET PO SCH (06:48)
[2021-02-28] MEDS: SODIUM CHLORIDE 0.9% 1,000 ML IV SCH ×2 (06:49→07:25)
[2021-02-28 07:51] VITALS: BP 113/67; PULSE 75; RESP 16; TEMP 97.5
[2021-02-28] MEDS: CALCIUM CARB-VIT D 500 MG-5 MCG TAB PO SCH (07:51)
[2021-02-28] MEDS: MULTIVITAMINS, THERA 1 EACH TAB PO SCH (07:51)
[2021-02-28] MEDS: LOSARTAN 25 MG TAB PO SCH (07:51)
[2021-02-28] MEDS: ARTIFICIAL TEARS-HYPROMELLOSE DROPS 15 ML BTL BOTH EYES SCH (07:52)
[2021-02-28] MEDS: ASPIRIN 81 MG PO SCH (07:52)
[2021-02-28] MEDS: FOLIC ACID 1 MG TAB PO SCH (07:52)
[2021-02-28] MEDS: DIVALPROEX 250 MG TABLET.DR PO SCH (07:53)
[2021-02-28] MEDS: HEPARIN SODIUM,PORCINE/PF 5,000 UNIT/0.5 ML SYRINGE SQ SCH (07:53)
[2021-02-28] MEDS: polyethylene glycoL 3350 17 GM POWD.PACK PO SCH (07:53)
[2021-02-28] MEDS ORDERED: metHOTREXate sodium 2.5 MG TAB PO SCH ×2 (08:00→21:00)
--- NOTE | 2021-02-28 11:00 | P.DS ---
Providers Date of admission: 02/22/21 17:43 Attending physician: Jonas Lawson Consults: 02/22/21 17:46 Consult Physician Routine Consulting Provider: Lavell Castillo Consult Reason/Comments: stroke like symptoms Do you want consulting provider notified?: Yes Primary care physician: Vu Rhoades [facility] Course: Final diagnosis Weakness and left facial droop possible acute TIA possible acute stroke i nvolving the right hemisphere Old encephalomalacia as well as previous surgery with a right posterior frontal lobe and MRI scan Gait dysfunction Increased creatinine with acute renal failure with acute tubular necrosis. Prerenal renal failure Increased MCV next 10 hypertension Hyperlipidemia History of rheumatoid arthritis with contractures Hypothyroidism Chronic pain syndrome Bilateral leg pain Severe gait dysfunction High-risk of falls History of UTI urinary incontinence History of constipation History of DJD History of bipolar full code Discharge disposition patient be discharged in a stable pressure the guarded prognosis and ECF in a matter. Total time taken 35 minutes. History of present illness this 75-year-old woman with a past medical history multiple medical problems was admitted with weakness and left facial droop the possibility of acute TIA and acute stroke was considered. Patient also had and old encephalomalacia in the MRI scan. Patient was treated in conjunction with the neurology. Medications are adjusted. PTOT was evaluated. Patient improved significantly. Patient is being discharged in a stable pressure the guarded prognosis to ECF at this time. On exam vitals are stable. Cardio S1 and S2 normal. Respiratory few scattered rhonchi. Abdomen soft and nontender. Nervous system system diffusely weak. Please refer to the medication reconciliation sheet for list of medications. Patient Condition at Discharge: Stable Plan - Discharge Summary Discharge Rx Participant: No New Discharge Prescriptions: New Aspirin 81 mg PO DAILY chew Divalproex [Depakote] 250 mg PO BID tablet. Atorvastatin [Lipitor] 20 mg PO HS tab Continue Multivitamins, Thera [Multivitamin (formulary)] 1 tab PO DAILY Calcium Carb-Vit D 500Mg-5Mcg [Oscal 500+D 5 Mcg (200 Iu)] 1 tab PO BID Propylene Glycol [Systane Complete] 1 drop BOTH EYES BID metHOTREXate sodium [Methotrexate] 10 mg PO WE@2100 metHOTREXate sodium [Methotrexate] 12.5 mg PO WE@0800 predniSONE [Deltasone] 20 mg PO HS Folic Acid 6 mg PO DAILY@1200 Polyethylene Glycol 3350 [Miralax] 17 gm PO DAILY Cholecalciferol [Vitamin D3 (25 Mcg = 1000 Iu)] 25 mcg PO HS Omeprazole 20 mg PO BID Levothyroxine Sodium [Synthroid] 75 mcg PO MOTUWETHFRSA Acetaminophen Tab [Tylenol] 500 - 1,000 mg PO Q6H PRN PRN Reason: Pain Losartan [Cozaar] 25 mg PO DAILY traMADol HCl [Ultram] 50 mg PO HS PRN PRN Reason: Pain Discontinued Pravastatin Sodium [Pravachol] 40 mg PO HS Divalproex [Depakote] 250 mg PO HS Discharge Medication List Acetaminophen Tab [Tylenol] 500 - 1,000 mg PO Q6H PRN 01/31/21 [History] Calcium Carb-Vit D 500Mg-5Mcg [Oscal 500+D 5 Mcg (200 Iu)] 1 tab PO BID 01/31/21 [History] Cholecalciferol [Vitamin D3 (25 Mcg = 1000 Iu)] 25 mcg PO HS 01/31/21 [History] Folic Acid 6 mg PO DAILY@1200 01/31/21 [History] Levothyroxine Sodium [Synthroid] 75 mcg PO MOTUWETHFRSA 01/31/21 [History] Multivitamins, Thera [Multivitamin (formulary)] 1 tab PO DAILY 01/31/21 [Hist ory] Omeprazole 20 mg PO BID 01/31/21 [History] Polyethylene Glycol 3350 [Miralax] 17 gm PO DAILY 01/31/21 [History] Propylene Glycol [Systane Complete] 1 drop BOTH EYES BID 01/31/21 [History] metHOTREXate sodium [Methotrexate] 10 mg PO WE@2100 01/31/21 [History] metHOTREXate sodium [Methotrexate] 12.5 mg PO WE@0800 01/31/21 [History] predniSONE [Deltasone] 20 mg PO HS 01/31/21 [History] Losartan [Cozaar] 25 mg PO DAILY 02/22/21 [History] traMADol HCl [Ultram] 50 mg PO HS PRN 02/22/21 [History] Aspirin 81 mg PO DAILY chew 02/27/21 [Rx] Atorvastatin [Lipitor] 20 mg PO HS tab 02/27/21 [Rx] Divalproex [Depakote] 250 mg PO BID tablet. 02/27/21 [Rx] Follow up Appointment(s)/Referral(s): Vu Rhoades DO [Primary Care Provider] - 1-2 days Activity/Diet/Wound Care/Special Instructions: Diet cardiac And activity as tolerated Discharge Disposition: TRANSFER TO SNF/ECF
== END 2021-02-28 14:20 | DRG 69 ==
LOC: EC 15:33 → 3SCARD 17:43
PROVIDERS: ADMIT Internal Medicine; ATTEND Internal Medicine
DX: G45.9 Transient cerebral ischemic attack, unspecified (principal); N17.0 Acute kidney failure with tubular necrosis; R47.01 Aphasia; G40.909 Epilepsy, unspecified, not intractable, without status epilepticus; M06.9 Rheumatoid arthritis, unspecified; F31.9 Bipolar disorder, unspecified; Z20.822 Contact with and (suspected) exposure to COVID-19; G93.89 Other specified disorders of brain; R29.810 Facial weakness; R47.81 Slurred speech; E89.0 Postprocedural hypothyroidism; E78.5 Hyperlipidemia, unspecified; I10 Essential (primary) hypertension; K21.9 Gastro-esophageal reflux disease without esophagitis; G89.4 Chronic pain syndrome; G62.9 Polyneuropathy, unspecified; D75.89 Other specified diseases of blood and blood-forming organs; R32 Unspecified urinary incontinence; R26.9 Unspecified abnormalities of gait and mobility; M19.90 Unspecified osteoarthritis, unspecified site; K14.9 Disease of tongue, unspecified; M79.604 Pain in right leg; M79.605 Pain in left leg; K59.00 Constipation, unspecified; H91.90 Unspecified hearing loss, unspecified ear; H54.7 Unspecified visual loss; M24.50 Contracture, unspecified joint; Z79.890 Hormone replacement therapy; Z79.52 Long term (current) use of systemic steroids; Z79.899 Other long term (current) drug therapy; Z87.891 Personal history of nicotine dependence; Z90.710 Acquired absence of both cervix and uterus; Z87.440 Personal history of urinary (tract) infections; Z90.89 Acquired absence of other organs; Z87.42 Personal history of other diseases of the female genital tract; Z87.39 Personal history of other diseases of the musculoskeletal system and connective tissue; Z87.2 Personal history of diseases of the skin and subcutaneous tissue; Z86.73 Personal history of transient ischemic attack (TIA), and cerebral infarction without residual deficits; Z91.81 History of falling; Z98.890 Other specified postprocedural states; W19.XXXA Unspecified fall, initial encounter; Z88.1 Allergy status to other antibiotic agents; Z88.0 Allergy status to penicillin; Z82.49 Family history of ischemic heart disease and other diseases of the circulatory system; Z82.61 Family history of arthritis
CPT/HCPCS: 36415; 70450; 70496; 70498; 70553; 71046; 80048; 80053; 80061; 81003; 82652; 82746; 82747; 83605; 84443; 84484; 84550; 85025; 85610; 85652; 85730; 86140; 87040; 87635; 93005; 93306; 94760; 95816; 99285

== ENCOUNTER 2021-03-15 | Inpatient (IN) | payer MEDICARE | END 2021-03-19 15:26 | DRG 300 | PROVIDERS: ADMIT Hospitalist | DX: I82.413 Acute embolism and thrombosis of femoral vein, bilateral (principal); N39.0 Urinary tract infection, site not specified; N17.9 Acute kidney failure, unspecified; I82.433 Acute embolism and thrombosis of popliteal vein, bilateral; I82.4Z3 Acute embolism and thrombosis of unspecified deep veins of distal lower extremity, bilateral; M06.9 Rheumatoid arthritis, unspecified; F31.9 Bipolar disorder, unspecified; I12.9 Hypertensive chronic kidney disease with stage 1 through stage 4 chronic kidney disease, or unspecified chronic kidney disease; N18.30 Chronic kidney disease, stage 3 unspecified; I48.91 Unspecified atrial fibrillation; Z20.822 Contact with and (suspected) exposure to COVID-19; G93.89 Other specified disorders of brain; B95.62 Methicillin resistant Staphylococcus aureus infection as the cause of diseases classified elsewhere; E86.0 Dehydration; I25.10 Atherosclerotic heart disease of native coronary artery without angina pectoris; E89.0 Postprocedural hypothyroidism; D53.9 Nutritional anemia, unspecified; E78.5 Hyperlipidemia, unspecified; G89.4 Chronic pain syndrome; R32 Unspecified urinary incontinence; K59.00 Constipation, unspecified; R41.841 Cognitive communication deficit; R26.9 Unspecified abnormalities of gait and mobility; R29.6 Repeated falls; Z90.710 Acquired absence of both cervix and uterus; Z79.82 Long term (current) use of aspirin; Z79.890 Hormone replacement therapy; Z79.52 Long term (current) use of systemic steroids; Z79.899 Other long term (current) drug therapy; Z87.440 Personal history of urinary (tract) infections; Z87.891 Personal history of nicotine dependence; Z87.42 Personal history of other diseases of the female genital tract; Z87.2 Personal history of diseases of the skin and subcutaneous tissue; Z87.39 Personal history of other diseases of the musculoskeletal system and connective tissue; Z87.19 Personal history of other diseases of the digestive system; Z86.14 Personal history of Methicillin resistant Staphylococcus aureus infection; Z90.89 Acquired absence of other organs; Z86.73 Personal history of transient ischemic attack (TIA), and cerebral infarction without residual deficits; Z98.890 Other specified postprocedural states; Z88.1 Allergy status to other antibiotic agents; Z88.0 Allergy status to penicillin; Z82.49 Family history of ischemic heart disease and other diseases of the circulatory system; Z82.61 Family history of arthritis | CPT/HCPCS: 36415; 80048; 80053; 81001; 83735; 84100; 85025; 85610; 85730; 87077; 87086; 87186; 87635; 93970; 99285 ==